=== PATIENT | female | born 1990 | race Caucasian/White ===

== ENCOUNTER 2022-05-26 23:22 | Inpatient (IN) ==
[2022-05-26] MEDS ORDERED: LIDOCAINE 1% LOCAL 20 ML VIAL INFIL PRN (23:37)
[2022-05-26] MEDS ORDERED: OXYTOCIN 30 UNITS/500 ML BAG IV PRN (23:37)
[2022-05-26] MEDS ORDERED: PENICILLIN G POTASSIUM 6 MU in DEXTROSE 5% 250 ML IV STA (23:37)
[2022-05-27] MEDS: LACTATED RINGER'S 1,000 ML IV PRN ×5 (00:19→17:37)
[2022-05-27] MEDS ORDERED: ePHEDrine sulfate 50 MG/ML AMP ONE (00:21)
[2022-05-27] MEDS ORDERED: SODIUM CHLORIDE 0.9% INJ 10 ML VIAL ONE (00:21)
[2022-05-27] MEDS ORDERED: fentaNYL citrate 100 MCG/2 ML VIAL ONE (00:21)
[2022-05-27] MEDS ORDERED: BUPIVACAINE 0.25% 30 ML VIAL ONE (00:21)
[2022-05-27] MEDS ORDERED: LIDOCAINE 2%/EPINEPHRINE 1:200,000 20 ML SDV ONE (00:21)
[2022-05-27] MEDS ORDERED: fentaNYL 2MCG/ML ROPIVACAINE 1.25MG/ML 100 ML BAG EPI ONE (00:21)
[2022-05-27 00:44] LABS: Hematocrit (blood only) 33.4 % (37.0-47.0); Hemoglobin 11.9 g/dl (12.0-16.0); Mean Corpuscular Hemoglobin 30.5 pg (25.0-34.0); Mean Corpuscular Hgb Conc 35.6 g/dL (32.0-36.0); Mean Corpuscular Volume 85.6 fL (80.0-100.0); Mean Platelet Volume 11.7 fL (9.4-12.4); Platelet Count 166 K/uL (130-400); RDW Coefficient of Variation 12.8 % (11.5-14.5); RDW Standard Deviation 38.7 fL (36.4-46.3); White Blood Count 9.12 K/ul (4.8-10.8)
[2022-05-27] MEDS ORDERED: ePHEDrine sulfate 50 MG/ML AMP IV PRN (01:09)
[2022-05-27] MEDS ORDERED: NALOXONE HCL 0.4 MG/1 ML VIAL/CARP IV PRN (01:09)
[2022-05-27] MEDS ORDERED: NALOXONE HCL 1 MG in SODIUM CHLORIDE 0.9% 1000ML 1,000 ML IV PRN (01:09)
[2022-05-27] MEDS ORDERED: diphenhydrAMINE 50 MG/ML VIAL IV PRN (01:09)
[2022-05-27] MEDS ORDERED: ONDANSETRON INJ 2 MG/ML 2 ML VIAL IV PRN (01:09)
[2022-05-27] MEDS ORDERED: NALBUPHINE HCL INJ 10 MG/ML AMP IV PRN (01:09)
--- NOTE | 2022-05-27 01:09 | Anesthesiology Consultation ---
Date of Service May 27, 2022 Assessment & Plan ASA ASA2 Proposed Anesthesia Anesthesia Type: Labor Epidural Risk / Benefits Reviewed With: PT / POA / Parent / Guardian, Accepts Plan and Informed Consent Obtained History Height/Weight Height: 5 ft 4 in Weight: 98.883 kg Allergies Allergy/AdvReac Type Severity Reaction Status Date / Time No Known Allergies Allergy Verified 05/26/22 23:52 Medications Home Medications Medication Instructions Recorded Confirmed Last Taken prenat.vits,srinivasa,yrp-prnj-hqwwc 1 tab PO DAILY 10/04/21 05/26/22 05/25/22 21:00 breast pump #1 ea 04/07/22 05/25/22 Unknown sertraline 50 mg tablet (Zoloft) 50 mg PO DAILY 05/26/22 05/26/22 05/25/22 21:00 Active Medications Generic Name Dose Route Start Last Admin Trade Name Freq PRN Reason Stop Dose Admin Lactated Ringer's 1,000 mls @ 125 mls/hr 05/26/22 23:37 05/27/22 00:19 Lr IV 05/28/22 23:36 999 mls/hr .Q8H PRN Administration L&D Protocol Protocol Past Medical History Medical History Anxiety Exercise / Class Metabolic Activity II 4-5 Yardwork/Stairs/Walk up hill Past Surgical History Surgical History History of ankle surgery S/P appendectomy Past Anesthesia History No Hx of Anesthesia Complications and No Family Hx of Anesthesia Complications History of PONV No Hx of PONV and No Hx of Motion Sickness Social History Smoking Status: Former smoker tobacco type: e-cigarettes Smoking End Date: quit 1 year ago Hx Alcohol Use: No Hx Substance Use: No substance use type: does not use Review of Systems denies fever/cough/ colds/ chest pain/ SOB/ GABBI denies GABBI Physical Exam Vital Signs Last Vital Signs Temp 36.5 C 05/26/22 23:55 Pulse 83 05/27/22 01:36 Resp 20 05/26/22 23:55 BP 114/63 05/27/22 01:36 Pulse Ox 100 05/27/22 01:34 ENMT Mouth: no TMJ abnormality and no dentition abnormality Thyromental Distance: > or= 3.5 Finger Breadths Mallampati Class: II Neck neck extension not limited Respiratory normal respiratory effort; no respiratory distress Auscultation: lungs clear to auscultation bilaterally Cardiovascular Rate/Rhythm: regular rate and regular rhythm Neurologic moves all extremities Psychiatric Orientation: alert and oriented x 3 Testing Laboratory Results 05/27/22 00:07
[2022-05-27] MEDS: PENICILLIN G POTASSIUM 3 MU in DEXTROSE 5% 100 ML IV PRN ×4 (04:28→16:31)
[2022-05-27] MEDS ORDERED: ceFAZolin 2000MG 2,000 MG/15 ML SYR IV SCH (06:00)
[2022-05-27] MEDS ORDERED: CITRIC ACID/SODIUM CITRATE 15 ML UDC PO SCH (06:00)
--- NOTE | 2022-05-27 07:20 | History & Physical Report ---
Date of Service May 27, 2022 Assessment & Plan (1) Active labor at term: (2) Group beta Strep positive: (3) Need for rhogam due to Rh negative mother: (4) Need for MMR vaccine: Plan pt has been admitted. labs reviewed. will need rhogam eval and mmr pp. on pcn for gbs pos. good progress in labor. regular ctx pattern. consider pit aug if needed. tylenol for de la rosa. fhts categ 1. Admission and Anticipated Discharge Date Admission Date: May 26, 2022 History of Present Illness Chief Complaint: contractions Primary Care Provider: Batsheva Holder MD 31yo at 40+wks janel presented to L&D with regular contractions. She called noting they were q1-2min. On arrival had srom, clear fluid. Cx was 4cm and she desired and received epidural. Last cx exam per nurse 6-7cm at 3- 4am. Pt comfortable. Has de la rosa which she attributes to not having caffeine. Denies other complaints. Maybe feeling pressure? PNC c/b 1. rh neg, had rhogam, eval pp 2. GBS pos urine, on pcn 3. Needs mmr booster pp PNL rh neg, rubella non immune, gbs pos Allergies Allergy/AdvReac Type Severity Reaction Status Date / Time No Known Allergies Allergy Verified 05/26/22 23:52 Home Medications Medication Instructions Recorded Confirmed Type prenat.vits,srinivasa,oki-mglu-irdvj 1 tab PO DAILY 10/04/21 05/26/22 History breast pump #1 ea 04/07/22 05/25/22 Rx sertraline 50 mg tablet (Zoloft) 50 mg PO DAILY 05/26/22 05/26/22 History Patient History Medical History (Updated 05/27/22 @ 07:19 by Juanita Botello MD, FACOG) Anxiety Surgical History History of ankle surgery S/P appendectomy Social History (Updated 10/04/21 @ 07:43 by Aye Bowser) Smoking Status: Former smoker Smoking End Date: quit 1 year ago; Second Hand Exposure: No; Hx Alcohol Use: No Hx Substance Use: No Preferred Language: Kiswahili Communication Ability: Effective Hand Bootmaker Required: No Beliefs That Will Affect Care: None marital status: marital status details: William (30) [phone] Current Living Situation: Spouse Current Living Situation Comment: lives with spouse, 2 dogs. current occupational status: employed current occupation: plant accountant Other Information That Helps Us Care for You: No Feels Safe at Home: Yes Safety Concerns: Feels Safe At This Time Assistive Devices: None Review of Systems as per Subjective / HPI Physical Exam Constitutional: WD/WN, vitals as above Respiratory: normal respiratory effort, lungs clear to auscultation Cardiovascular: Rate/Rhythm: regular rate and regular rhythm Gastrointestinal (Abdomen): soft gravid nt EFW 8-9# Musculoskeletal: no edema Neurologic: grossly normal Psychiatric: A+Ox3, euthymic affect Genitourinary: Manual OB Exam: + cervical dilation 8 cm, + cervical effacement 100% and + station 0 OB Exam Monitor Tracing: + external FHT monitor used, + external uterine monitor used (q2-3), + category I and + normal FHT variability Results & Data ([facility]) Vital Signs (Past 12 Hours) Vital Signs Temp Pulse Resp BP Pulse Ox 05/26/22 23:55 97.7 F 50 L 20 127/71 05/27/22 07:11 83 98 05/27/22 07:06 76 98 05/27/22 07:04 82 116/69 05/27/22 07:00 18 05/27/22 07:00 18 05/27/22 07:01 80 97 05/27/22 06:30 16 05/27/22 06:30 16 05/27/22 06:56 86 98 05/27/22 06:51 77 97 05/27/22 06:49 85 115/70 05/27/22 06:46 77 97 05/27/22 06:41 75 96 05/27/22 06:36 98 05/27/22 06:36 76 05/27/22 06:36 72 115/63 05/27/22 06:31 74 97 05/27/22 06:26 79 98 05/27/22 06:21 73 96 05/27/22 06:20 75 98/57 L 05/27/22 06:16 73 96 05/27/22 06:11 76 96 05/27/22 06:06 97 05/27/22 06:06 73 05/27/22 06:06 71 99/53 L 05/27/22 06:00 16 05/27/22 06:00 16 05/27/22 06:01 76 96 05/27/22 05:56 71 97 05/27/22 01:34 18 05/27/22 01:34 18 05/27/22 05:51 72 97 05/27/22 05:50 69 108/58 L 05/27/22 05:46 73 97 05/27/22 05:40 98.4 F 05/27/22 05:41 94 H 98 05/27/22 05:30 18 05/27/22 05:30 18 05/27/22 05:36 80 98 05/27/22 05:34 78 116/71 05/27/22 05:31 79 99 05/27/22 05:26 78 97 05/27/22 05:00 16 05/27/22 05:00 16 05/27/22 05:21 76 98 05/27/22 05:20 70 114/70 05/27/22 05:16 81 99 05/27/22 05:11 81 99 05/27/22 05:06 76 99 05/27/22 05:04 77 117/70 05/27/22 05:01 78 97 05/27/22 04:56 72 97 05/27/22 04:51 69 100 05/27/22 04:50 75 117/67 05/27/22 04:46 81 100 05/27/22 04:41 74 99 05/27/22 04:36 72 100 05/27/22 04:34 72 118/68 05/27/22 04:30 18 05/27/22 04:30 18 05/27/22 04:31 73 98 05/27/22 04:26 78 100 05/27/22 04:21 72 99 05/27/22 04:19 84 112/66 05/27/22 04:16 70 100 05/27/22 04:11 66 100 05/27/22 04:00 16 05/27/22 04:00 16 05/27/22 04:06 72 100 05/27/22 04:05 74 112/66 05/27/22 04:01 72 99 05/27/22 03:56 68 100 05/27/22 03:51 73 100 05/27/22 03:50 72 115/71 05/27/22 03:46 73 100 05/27/22 03:30 18 05/27/22 03:30 18 05/27/22 03:43 71 86 L 05/27/22 03:37 98.1 F 05/27/22 03:41 73 100 05/27/22 03:36 77 100 05/27/22 03:31 79 100 05/27/22 03:29 75 118/63 05/27/22 03:26 85 100 05/27/22 03:24 67 114/62 05/27/22 03:21 68 100 05/27/22 03:19 69 116/63 05/27/22 03:16 69 100 05/27/22 03:14 68 115/60 05/27/22 03:11 77 100 05/27/22 03:09 77 114/64 05/27/22 03:06 86 100 05/27/22 03:04 83 112/60 05/27/22 03:01 90 99 05/27/22 03:00 68 110/66 05/27/22 02:56 73 100 05/27/22 02:55 68 112/62 05/27/22 02:51 82 100 05/27/22 02:49 80 111/62 05/27/22 02:46 81 100 05/27/22 02:44 80 119/56 L 05/27/22 02:41 75 100 05/27/22 02:40 86 114/65 05/27/22 02:36 84 100 05/27/22 02:35 86 109/66 05/27/22 02:31 76 100 05/27/22 02:30 16 05/27/22 02:30 16 05/27/22 02:29 83 109/61 05/27/22 02:26 86 100 05/27/22 02:24 74 18 108/61 05/27/22 02:01 18 05/27/22 02:01 18 05/27/22 02:21 77 100 05/27/22 02:20 77 16 112/60 05/27/22 02:16 95 H 100 05/27/22 02:14 97 H 18 100/59 L 05/27/22 02:11 82 100 05/27/22 02:09 99 H 16 96/55 L 05/27/22 02:06 100 05/27/22 02:06 87 05/27/22 02:06 88 87/54 L 05/27/22 02:01 100 05/27/22 02:01 112 H 05/27/22 02:01 110 H 109/58 L 05/27/22 01:56 99 05/27/22 01:56 71 05/27/22 01:56 65 87/53 L 05/27/22 01:50 97.9 F 72 100 05/27/22 01:45 78 18 98/58 L 100 05/27/22 01:39 88 100 05/27/22 01:38 86 20 109/62 05/27/22 01:36 83 18 114/63 05/27/22 01:34 100 05/27/22 01:34 77 05/27/22 01:34 85 115/60 05/27/22 01:31 68 18 118/59 L 05/27/22 01:29 70 99 05/27/22 01:30 71 93 05/27/22 01:24 59 L 100 05/27/22 01:19 50 L 100 05/27/22 01:14 70 99 05/26/22 23:31 97.7 F 50 L 20 127/71 Coding Level of Care Code None Diagnoses Active labor at term Group beta Strep positive B95.1 Need for rhogam due to Rh negative mother Z29.13 Need for MMR vaccine Z23
[2022-05-27] MEDS ORDERED: ACETAMINOPHEN 325 MG TAB PO STA (07:21)
[2022-05-27] MEDS: fentaNYL 2MCG/ML ROPIVACAINE 1.25MG/ML 100 ML BAG EPI PRN ×2 (09:06→15:42)
[2022-05-27] MEDS ORDERED: OXYTOCIN 30 UNITS/500 ML BAG IV PRN (11:21)
--- NOTE | 2022-05-27 11:28 | Labor Progress Brief Note ---
Date of Service May 27, 2022 Subjective Comfortable with epidural. FHT Cat 1 toco irreg Q2-4 SVE 9/100/0 Agreeable to start pitocin. Assessment & Plan Admission and Anticipated Discharge Date Admission Date: May 26, 2022 Results & Data ([facility]) Vital Signs (Past 12 Hours) Vital Signs Temp Pulse Resp BP Pulse Ox 05/26/22 23:55 36.5 C 50 L 20 127/71 05/27/22 11:21 98 05/27/22 11:21 74 05/27/22 11:21 70 116/55 L 05/27/22 11:16 79 97 05/27/22 11:11 62 98 05/27/22 11:06 60 98 05/27/22 11:05 60 116/66 05/27/22 11:00 18 05/27/22 11:00 36.9 C 18 05/27/22 11:01 67 98 05/27/22 10:56 64 98 05/27/22 10:51 63 98 05/27/22 10:49 68 118/61 05/27/22 10:46 62 97 05/27/22 10:41 71 96 05/27/22 10:36 74 96 05/27/22 10:34 73 113/63 05/27/22 10:31 68 97 05/27/22 10:26 72 96 05/27/22 10:21 64 96 05/27/22 10:19 60 102/61 05/27/22 10:16 66 100 05/27/22 10:00 18 05/27/22 10:00 18 05/27/22 10:11 58 L 97 05/27/22 10:06 60 96 05/27/22 10:04 63 97/52 L 05/27/22 10:01 60 97 05/27/22 09:56 58 L 97 05/27/22 09:51 61 98 05/27/22 09:49 56 L 96/55 L 05/27/22 09:46 63 98 05/27/22 09:41 58 L 98 05/27/22 09:36 59 L 98 05/27/22 09:30 16 05/27/22 09:30 16 05/27/22 09:34 62 93/53 L 05/27/22 09:31 69 97 02/18/23 09:26 64 97 05/27/22 09:21 66 97 05/27/22 09:19 59 L 121/67 05/27/22 09:16 64 98 05/27/22 09:11 66 97 05/27/22 09:06 70 98 05/27/22 09:04 64 124/70 05/27/22 09:01 65 98 05/27/22 08:59 18 05/27/22 08:59 36.8 C 18 05/27/22 08:30 18 05/27/22 08:30 18 05/27/22 08:56 66 99 05/27/22 08:51 72 100 05/27/22 08:49 68 117/69 05/27/22 08:46 73 100 05/27/22 08:41 70 98 05/27/22 08:36 75 98 05/27/22 08:34 65 122/70 05/27/22 08:31 76 99 05/27/22 08:00 16 05/27/22 08:00 16 05/27/22 08:26 69 99 05/27/22 07:30 18 05/27/22 07:30 18 05/27/22 08:21 73 100 05/27/22 08:20 71 118/75 05/27/22 08:16 72 99 05/27/22 08:11 71 98 05/27/22 08:06 72 97 05/27/22 08:05 66 118/64 05/27/22 08:01 68 98 05/27/22 07:56 67 98 05/27/22 07:51 75 98 05/27/22 07:49 69 124/60 05/27/22 07:46 76 98 05/27/22 07:41 75 97 05/27/22 07:36 74 97 05/27/22 07:35 78 118/63 05/27/22 07:31 84 96 05/27/22 07:26 76 97 05/27/22 07:21 84 98 05/27/22 07:20 76 110/68 05/27/22 07:16 81 97 05/27/22 07:11 37.1 C 83 18 98 05/27/22 07:06 76 98 05/27/22 07:04 82 116/69 05/27/22 07:00 18 05/27/22 07:00 18 05/27/22 07:01 80 97 05/27/22 06:30 16 05/27/22 06:30 16 05/27/22 06:56 86 98 05/27/22 06:51 77 97 05/27/22 06:49 85 115/70 05/27/22 06:46 77 97 05/27/22 06:41 75 96 05/27/22 06:36 98 05/27/22 06:36 76 05/27/22 06:36 72 115/63 05/27/22 06:31 74 97 05/27/22 06:26 79 98 05/27/22 06:21 73 96 05/27/22 06:20 75 98/57 L 05/27/22 06:16 73 96 05/27/22 06:11 76 96 05/27/22 06:06 97 05/27/22 06:06 73 05/27/22 06:06 71 99/53 L 05/27/22 06:00 16 05/27/22 06:00 16 05/27/22 06:01 76 96 05/27/22 05:56 71 97 05/27/22 01:34 18 05/27/22 01:34 18 05/27/22 05:51 72 97 05/27/22 05:50 69 108/58 L 05/27/22 05:46 73 97 05/27/22 05:40 36.9 C 05/27/22 05:41 94 H 98 05/27/22 05:30 18 05/27/22 05:30 18 05/27/22 05:36 80 98 05/27/22 05:34 78 116/71 05/27/22 05:31 79 99 05/27/22 05:26 78 97 05/27/22 05:00 16 05/27/22 05:00 16 05/27/22 05:21 76 98 05/27/22 05:20 70 114/70 05/27/22 05:16 81 99 05/27/22 05:11 81 99 05/27/22 05:06 76 99 05/27/22 05:04 77 117/70 05/27/22 05:01 78 97 05/27/22 04:56 72 97 05/27/22 04:51 69 100 05/27/22 04:50 75 117/67 05/27/22 04:46 81 100 05/27/22 04:41 74 99 05/27/22 04:36 72 100 05/27/22 04:34 72 118/68 05/27/22 04:30 18 05/27/22 04:30 18 05/27/22 04:31 73 98 05/27/22 04:26 78 100 05/27/22 04:21 72 99 05/27/22 04:19 84 112/66 05/27/22 04:16 70 100 05/27/22 04:11 66 100 05/27/22 04:00 16 05/27/22 04:00 16 05/27/22 04:06 72 100 05/27/22 04:05 74 112/66 05/27/22 04:01 72 99 05/27/22 03:56 68 100 05/27/22 03:51 73 100 05/27/22 03:50 72 115/71 05/27/22 03:46 73 100 05/27/22 03:30 18 05/27/22 03:30 18 05/27/22 03:43 71 86 L 05/27/22 03:37 36.7 C 05/27/22 03:41 73 100 05/27/22 03:36 77 100 05/27/22 03:31 79 100 05/27/22 03:29 75 118/63 05/27/22 03:26 85 100 05/27/22 03:24 67 114/62 05/27/22 03:21 68 100 05/27/22 03:19 69 116/63 05/27/22 03:16 69 100 05/27/22 03:14 68 115/60 05/27/22 03:11 77 100 05/27/22 03:09 77 114/64 05/27/22 03:06 86 100 05/27/22 03:04 83 112/60 05/27/22 03:01 90 99 05/27/22 03:00 68 110/66 05/27/22 02:56 73 100 05/27/22 02:55 68 112/62 05/27/22 02:51 82 100 05/27/22 02:49 80 111/62 05/27/22 02:46 81 100 05/27/22 02:44 80 119/56 L 05/27/22 02:41 75 100 05/27/22 02:40 86 114/65 05/27/22 02:36 84 100 05/27/22 02:35 86 109/66 05/27/22 02:31 76 100 05/27/22 02:30 16 05/27/22 02:30 16 05/27/22 02:29 83 109/61 05/27/22 02:26 86 100 05/27/22 02:24 74 18 108/61 05/27/22 02:01 18 05/27/22 02:01 18 05/27/22 02:21 77 100 05/27/22 02:20 77 16 112/60 05/27/22 02:16 95 H 100 05/27/22 02:14 97 H 18 100/59 L 05/27/22 02:11 82 100 05/27/22 02:09 99 H 16 96/55 L 05/27/22 02:06 100 05/27/22 02:06 87 05/27/22 02:06 88 87/54 L 05/27/22 02:01 100 05/27/22 02:01 112 H 05/27/22 02:01 110 H 109/58 L 05/27/22 01:56 99 05/27/22 01:56 71 05/27/22 01:56 65 87/53 L 05/27/22 01:50 36.6 C 72 100 05/27/22 01:45 78 18 98/58 L 100 05/27/22 01:39 88 100 05/27/22 01:38 86 20 109/62 05/27/22 01:36 83 18 114/63 05/27/22 01:34 100 05/27/22 01:34 77 05/27/22 01:34 85 115/60 05/27/22 01:31 68 18 118/59 L 05/27/22 01:29 70 99 05/27/22 01:30 71 93 05/27/22 01:24 59 L 100 05/27/22 01:19 50 L 100 05/27/22 01:14 70 99 05/26/22 23:31 36.5 C 50 L 20 127/71 Coding Level of Care Code None Diagnoses
--- NOTE | 2022-05-27 13:54 | Labor Progress Brief Note ---
Date of Service May 27, 2022 Subjective Comfortable with epidural. Contraction pattern has now increased to Q2 min with the addition of pitocin. FHT Cat 1 SVE 9/100/+1 station has improved, discussed with patient - will continue labor. Assessment & Plan Admission and Anticipated Discharge Date Admission Date: May 26, 2022 Results & Data ([facility]) Vital Signs (Past 12 Hours) Vital Signs Temp Pulse Resp BP Pulse Ox 05/27/22 13:51 83 98 05/27/22 13:50 63 102/59 L 05/27/22 13:46 62 98 05/27/22 13:41 73 97 05/27/22 13:36 58 L 98 05/27/22 13:35 53 L 114/58 L 05/27/22 13:30 18 05/27/22 13:30 18 05/27/22 13:31 56 L 98 05/27/22 13:26 65 99 05/27/22 13:21 60 99 05/27/22 13:19 56 L 108/61 05/27/22 13:16 58 L 96 05/27/22 13:11 64 97 05/27/22 13:06 62 97 05/27/22 13:05 62 110/64 05/27/22 13:00 18 05/27/22 13:00 36.6 C 18 05/27/22 13:01 71 96 05/27/22 12:56 60 97 05/27/22 12:30 18 05/27/22 12:30 18 05/27/22 12:51 60 95 05/27/22 12:50 60 122/61 05/27/22 12:46 66 97 05/27/22 12:41 66 97 05/27/22 12:36 59 L 97 05/27/22 12:34 85 101/55 L 05/27/22 12:31 75 96 05/27/22 12:00 16 05/27/22 12:00 16 05/27/22 12:26 57 L 97 05/27/22 11:30 18 05/27/22 11:30 18 05/27/22 12:21 59 L 98 05/27/22 12:19 60 106/58 L 05/27/22 12:16 72 96 05/27/22 12:11 69 98 05/27/22 12:06 60 96 05/27/22 12:05 58 L 121/65 05/27/22 12:01 62 96 05/27/22 11:56 59 L 98 05/27/22 11:51 69 97 05/27/22 11:50 58 L 111/66 05/27/22 11:46 66 98 05/27/22 11:41 64 98 05/27/22 11:36 59 L 98 05/27/22 11:34 68 109/61 05/27/22 11:31 59 L 97 05/27/22 11:26 67 97 05/27/22 11:21 98 05/27/22 11:21 74 05/27/22 11:21 70 116/55 L 05/27/22 11:16 79 97 05/27/22 11:11 62 98 05/27/22 11:06 60 98 05/27/22 11:05 60 116/66 05/27/22 11:00 18 05/27/22 11:00 36.9 C 18 05/27/22 11:01 67 98 05/27/22 10:56 64 98 05/27/22 10:51 63 98 05/27/22 10:49 68 118/61 05/27/22 10:46 62 97 05/27/22 10:41 71 96 05/27/22 10:36 74 96 05/27/22 10:34 73 113/63 05/27/22 10:31 68 97 05/27/22 10:26 72 96 05/27/22 10:21 64 96 05/27/22 10:19 60 102/61 05/27/22 10:16 66 100 05/27/22 10:00 18 05/27/22 10:00 18 05/27/22 10:11 58 L 97 05/27/22 10:06 60 96 05/27/22 10:04 63 97/52 L 05/27/22 10:01 60 97 05/27/22 09:56 58 L 97 05/27/22 09:51 61 98 05/27/22 09:49 56 L 96/55 L 05/27/22 09:46 63 98 05/27/22 09:41 58 L 98 05/27/22 09:36 59 L 98 05/27/22 09:30 16 05/27/22 09:30 16 05/27/22 09:34 62 93/53 L 05/27/22 09:31 69 97 05/27/22 09:26 64 97 05/27/22 09:21 66 97 05/27/22 09:19 59 L 121/67 05/27/22 09:16 64 98 05/27/22 09:11 66 97 05/27/22 09:06 70 98 05/27/22 09:04 64 124/70 05/27/22 09:01 65 98 05/27/22 08:59 18 05/27/22 08:59 36.8 C 18 05/27/22 08:30 18 05/27/22 08:30 18 05/27/22 08:56 66 99 05/27/22 08:51 72 100 05/27/22 08:49 68 117/69 05/27/22 08:46 73 100 05/27/22 08:41 70 98 05/27/22 08:36 75 98 05/27/22 08:34 65 122/70 05/27/22 08:31 76 99 05/27/22 08:00 16 05/27/22 08:00 16 05/27/22 08:26 69 99 05/27/22 07:30 18 05/27/22 07:30 18 05/27/22 08:21 73 100 05/27/22 08:20 71 118/75 05/27/22 08:16 72 99 05/27/22 08:11 71 98 05/27/22 08:06 72 97 05/27/22 08:05 66 118/64 05/27/22 08:01 68 98 05/27/22 07:56 67 98 05/27/22 07:51 75 98 05/27/22 07:49 69 124/60 05/27/22 07:46 76 98 05/27/22 07:41 75 97 05/27/22 07:36 74 97 02 07:35 78 118/63 05/27/22 07:31 84 96 05/27/22 07:26 76 97 05/27/22 07:21 84 98 05/27/22 07:20 76 110/68 05/27/22 07:16 81 97 05/27/22 07:11 37.1 C 83 18 98 05/27/22 07:06 76 98 05/27/22 07:04 82 116/69 05/27/22 07:00 18 05/27/22 07:00 18 05/27/22 07:01 80 97 05/27/22 06:30 16 05/27/22 06:30 16 05/27/22 06:56 86 98 05/27/22 06:51 77 97 05/27/22 06:49 85 115/70 05/27/22 06:46 77 97 05/27/22 06:41 75 96 05/27/22 06:36 98 05/27/22 06:36 76 05/27/22 06:36 72 115/63 05/27/22 06:31 74 97 05/27/22 06:26 79 98 05/27/22 06:21 73 96 05/27/22 06:20 75 98/57 L 05/27/22 06:16 73 96 05/27/22 06:11 76 96 05/27/22 06:06 97 05/27/22 06:06 73 05/27/22 06:06 71 99/53 L 05/27/22 06:00 16 05/27/22 06:00 16 05/27/22 06:01 76 96 05/27/22 05:56 71 97 05/27/22 05:51 72 97 05/27/22 05:50 69 108/58 L 05/27/22 05:46 73 97 05/27/22 05:40 36.9 C 05/27/22 05:41 94 H 98 05/27/22 05:30 18 05/27/22 05:30 18 05/27/22 05:36 80 98 05/27/22 05:34 78 116/71 05/27/22 05:31 79 99 05/27/22 05:26 78 97 05/27/22 05:00 16 05/27/22 05:00 16 05/27/22 05:21 76 98 05/27/22 05:20 70 114/70 05/27/22 05:16 81 99 05/27/22 05:11 81 99 05/27/22 05:06 76 99 05/27/22 05:04 77 117/70 05/27/22 05:01 78 97 05/27/22 04:56 72 97 05/27/22 04:51 69 100 05/27/22 04:50 75 117/67 05/27/22 04:46 81 100 05/27/22 04:41 74 99 05/27/22 04:36 72 100 05/27/22 04:34 72 118/68 05/27/22 04:30 18 05/27/22 04:30 18 05/27/22 04:31 73 98 05/27/22 04:26 78 100 05/27/22 04:21 72 99 05/27/22 04:19 84 112/66 05/27/22 04:16 70 100 05/27/22 04:11 66 100 05/27/22 04:00 16 05/27/22 04:00 16 05/27/22 04:06 72 100 05/27/22 04:05 74 112/66 05/27/22 04:01 72 99 05/27/22 03:56 68 100 05/27/22 03:51 73 100 05/27/22 03:50 72 115/71 05/27/22 03:46 73 100 05/27/22 03:30 18 05/27/22 03:30 18 05/27/22 03:43 71 86 L 05/27/22 03:37 36.7 C 05/27/22 03:41 73 100 05/27/22 03:36 77 100 05/27/22 03:31 79 100 05/27/22 03:29 75 118/63 05/27/22 03:26 85 100 05/27/22 03:24 67 114/62 05/27/22 03:21 68 100 05/27/22 03:19 69 116/63 05/27/22 03:16 69 100 05/27/22 03:14 68 115/60 05/27/22 03:11 77 100 05/27/22 03:09 77 114/64 05/27/22 03:06 86 100 05/27/22 03:04 83 112/60 05/27/22 03:01 90 99 05/27/22 03:00 68 110/66 05/27/22 02:56 73 100 05/27/22 02:55 68 112/62 05/27/22 02:51 82 100 05/27/22 02:49 80 111/62 05/27/22 02:46 81 100 05/27/22 02:44 80 119/56 L 05/27/22 02:41 75 100 05/27/22 02:40 86 114/65 05/27/22 02:36 84 100 05/27/22 02:35 86 109/66 05/27/22 02:31 76 100 05/27/22 02:30 16 05/27/22 02:30 16 05/27/22 02:29 83 109/61 05/27/22 02:26 86 100 05/27/22 02:24 74 18 108/61 05/27/22 02:01 18 05/27/22 02:01 18 05/27/22 02:21 77 100 05/27/22 02:20 77 16 112/60 05/27/22 02:16 95 H 100 05/27/22 02:14 97 H 18 100/59 L 05/27/22 02:11 82 100 05/27/22 02:09 99 H 16 96/55 L 05/27/22 02:06 100 05/27/22 02:06 87 05/27/22 02:06 88 87/54 L 05/27/22 02:01 100 05/27/22 02:01 112 H 05/27/22 02:01 110 H 109/58 L 05/27/22 01:56 99 05/27/22 01:56 71 05/27/22 01:56 65 87/53 L Coding Level of Care Code None Diagnoses
--- NOTE | 2022-05-27 15:29 | Labor Progress Brief Note ---
Date of Service May 27, 2022 Subjective Not feeling pressure with ctx. FHT Cat 1 [place] Q 2-4 Pit @ 11 SVE 9.5/100/+1 Discussed with patient. Progress has been slow. Plan for continue labor at this time. Assessment & Plan Admission and Anticipated Discharge Date Admission Date: May 26, 2022 Results & Data ([facility]) Vital Signs (Past 12 Hours) Vital Signs Temp Pulse Resp BP Pulse Ox 05/27/22 15:21 72 93 05/27/22 15:20 60 110/65 05/27/22 15:16 55 L 96 05/27/22 15:11 51 L 97 05/27/22 15:00 18 05/27/22 15:00 36.8 C 18 05/27/22 15:06 52 L 98 05/27/22 15:05 52 L 92/54 L 05/27/22 15:01 68 97 05/27/22 14:56 60 96 05/27/22 14:51 56 L 97 05/27/22 14:50 52 L 117/74 05/27/22 14:46 64 97 05/27/22 14:41 56 L 96 05/27/22 14:30 16 05/27/22 14:30 16 05/27/22 14:36 56 L 95 05/27/22 14:34 54 L 134/75 05/27/22 14:31 56 L 96 05/27/22 14:26 56 L 97 05/27/22 14:21 56 L 96 05/27/22 14:19 55 L 131/71 05/27/22 14:16 55 L 96 05/27/22 14:00 18 05/27/22 14:00 18 05/27/22 14:11 71 118/74 94 05/27/22 14:06 67 85/46 L 97 05/27/22 14:05 60 85/48 L 05/27/22 14:01 60 98 05/27/22 13:56 57 L 97 05/27/22 13:51 83 98 05/27/22 13:50 63 102/59 L 05/27/22 13:46 62 98 05/27/22 13:41 73 97 05/27/22 13:36 58 L 98 05/27/22 13:35 53 L 114/58 L 05/27/22 13:30 18 05/27/22 13:30 18 05/27/22 13:31 56 L 98 05/27/22 13:26 65 99 05/27/22 13:21 60 99 05/27/22 13:19 56 L 108/61 05/27/22 13:16 58 L 96 05/27/22 13:11 64 97 05/27/22 13:06 62 97 05/27/22 13:05 62 110/64 05/27/22 13:00 18 05/27/22 13:00 36.6 C 18 05/27/22 13:01 71 96 05/27/22 12:56 60 97 05/27/22 12:30 18 05/27/22 12:30 18 05/27/22 12:51 60 95 05/27/22 12:50 60 122/61 05/27/22 12:46 66 97 05/27/22 12:41 66 97 05/27/22 12:36 59 L 97 05/27/22 12:34 85 101/55 L 05/27/22 12:31 75 96 05/27/22 12:00 16 05/27/22 12:00 16 05/27/22 12:26 57 L 97 05/27/22 11:30 18 05/27/22 11:30 18 05/27/22 12:21 59 L 98 05/27/22 12:19 60 106/58 L 05/27/22 12:16 72 96 05/27/22 12:11 69 98 05/27/22 12:06 60 96 05/27/22 12:05 58 L 121/65 05/27/22 12:01 62 96 05/27/22 11:56 59 L 98 05/27/22 11:51 69 97 05/27/22 11:50 58 L 111/66 05/27/22 11:46 66 98 05/27/22 11:41 64 98 05/27/22 11:36 59 L 98 05/27/22 11:34 68 109/61 05/27/22 11:31 59 L 97 05/27/22 11:26 67 97 05/27/22 11:21 98 05/27/22 11:21 74 05/27/22 11:21 70 116/55 L 05/27/22 11:16 79 97 05/27/22 11:11 62 98 05/27/22 11:06 60 98 05/27/22 11:05 60 116/66 05/27/22 11:00 18 05/27/22 11:00 36.9 C 18 05/27/22 11:01 67 98 05/27/22 10:56 64 98 05/27/22 10:51 63 98 05/27/22 10:49 68 118/61 05/27/22 10:46 62 97 05/27/22 10:41 71 96 05/27/22 10:36 74 96 05/27/22 10:34 73 113/63 05/27/22 10:31 68 97 05/27/22 10:26 72 96 05/27/22 10:21 64 96 05/27/22 10:19 60 102/61 05/27/22 10:16 66 100 05/27/22 10:00 18 05/27/22 10:00 18 05/27/22 10:11 58 L 97 05/27/22 10:06 60 96 05/27/22 10:04 63 97/52 L 05/27/22 10:01 60 97 05/27/22 09:56 58 L 97 05/27/22 09:51 61 98 05/27/22 09:49 56 L 96/55 L 05/27/22 09:46 63 98 05/27/22 09:41 58 L 98 05/27/22 09:36 59 L 98 05/27/22 09:30 16 05/27/22 09:30 16 05/27/22 09:34 62 93/53 L 05/27/22 09:31 69 97 05/27/22 09:26 64 97 05/27/22 09:21 66 97 05/27/22 09:19 59 L 121/67 05/27/22 09:16 64 98 05/27/22 09:11 66 97 05/27/22 09:06 70 98 05/27/22 09:04 64 124/70 05/27/22 09:01 65 98 05/27/22 08:59 18 05/27/22 08:59 36.8 C 18 05/27/22 08:30 18 05/27/22 08:30 18 05/27/22 08:56 66 99 05/27/22 08:51 72 100 05/27/22 08:49 68 117/69 05/27/22 08:46 73 100 05/27/22 08:41 70 98 05/27/22 08:36 75 98 05/27/22 08:34 65 122/70 05/27/22 08:31 76 99 05/27/22 08:00 16 05/27/22 08:00 16 05/27/22 08:26 69 99 05/27/22 07:30 18 05/27/22 07:30 18 05/27/22 08:21 73 100 05/27/22 08:20 71 118/75 05/27/22 08:16 72 99 05/27/22 08:11 71 98 05/27/22 08:06 72 97 05/27/22 08:05 66 118/64 05/27/22 08:01 68 98 05/27/22 07:56 67 98 05/27/22 07:51 75 98 05/27/22 07:49 69 124/60 05/27/22 07:46 76 98 05/27/22 07:41 75 97 05/27/22 07:36 74 97 05/27/22 07:35 78 118/63 05/27/22 07:31 84 96 05/27/22 07:26 76 97 05/27/22 07:21 84 98 05/27/22 07:20 76 110/68 05/27/22 07:16 81 97 05/27/22 07:11 37.1 C 83 18 98 05/27/22 07:06 76 98 05/27/22 07:04 82 116/69 05/27/22 07:00 18 05/27/22 07:00 18 05/27/22 07:01 80 97 05/27/22 06:30 16 05/27/22 06:30 16 05/27/22 06:56 86 98 05/27/22 06:51 77 97 05/27/22 06:49 85 115/70 05/27/22 06:46 77 97 05/27/22 06:41 75 96 05/27/22 06:36 98 05/27/22 06:36 76 05/27/22 06:36 72 115/63 05/27/22 06:31 74 97 05/27/22 06:26 79 98 05/27/22 06:21 73 96 05/27/22 06:20 75 98/57 L 05/27/22 06:16 73 96 05/27/22 06:11 76 96 05/27/22 06:06 97 05/27/22 06:06 73 05/27/22 06:06 71 99/53 L 05/27/22 06:00 16 05/27/22 06:00 16 05/27/22 06:01 76 96 05/27/22 05:56 71 97 05/27/22 05:51 72 97 05/27/22 05:50 69 108/58 L 05/27/22 05:46 73 97 05/27/22 05:40 36.9 C 05/27/22 05:41 94 H 98 05/27/22 05:30 18 05/27/22 05:30 18 05/27/22 05:36 80 98 05/27/22 05:34 78 116/71 05/27/22 05:31 79 99 05/27/22 05:26 78 97 05/27/22 05:00 16 05/27/22 05:00 16 05/27/22 05:21 76 98 05/27/22 05:20 70 114/70 05/27/22 05:16 81 99 05/27/22 05:11 81 99 05/27/22 05:06 76 99 05/27/22 05:04 77 117/70 05/27/22 05:01 78 97 05/27/22 04:56 72 97 05/27/22 04:51 69 100 05/27/22 04:50 75 117/67 05/27/22 04:46 81 100 05/27/22 04:41 74 99 05/27/22 04:36 72 100 05/27/22 04:34 72 118/68 05/27/22 04:30 18 05/27/22 04:30 18 05/27/22 04:31 73 98 05/27/22 04:26 78 100 05/27/22 04:21 72 99 05/27/22 04:19 84 112/66 05/27/22 04:16 70 100 05/27/22 04:11 66 100 05/27/22 04:00 16 05/27/22 04:00 16 05/27/22 04:06 72 100 05/27/22 04:05 74 112/66 05/27/22 04:01 72 99 05/27/22 03:56 68 100 05/27/22 03:51 73 100 05/27/22 03:50 72 115/71 05/27/22 03:46 73 100 05/27/22 03:30 18 05/27/22 03:30 18 05/27/22 03:43 71 86 L 05/27/22 03:37 36.7 C 05/27/22 03:41 73 100 05/27/22 03:36 77 100 05/27/22 03:31 79 100 05/27/22 03:29 75 118/63 Coding Level of Care Code None Diagnoses
--- NOTE | 2022-05-27 17:36 | Labor Progress Brief Note ---
Date of Service May 27, 2022 Subjective Comfortable. FHT 130s, mod cinthya, +accels, rare variable decels [place] Q2 SVE complete/100/+1 Will start pushing. Assessment & Plan Admission and Anticipated Discharge Date Admission Date: May 26, 2022 Results & Data ([facility]) Vital Signs (Past 12 Hours) Vital Signs Temp Pulse Resp BP Pulse Ox 05/27/22 17:31 77 100 05/27/22 17:26 58 L 100 05/27/22 17:21 62 99 05/27/22 17:16 51 L 100 05/27/22 17:11 54 L 100 05/27/22 17:00 18 05/27/22 17:00 36.7 C 18 05/27/22 17:06 52 L 100 05/27/22 17:01 51 L 99 05/27/22 16:56 52 L 100 05/27/22 16:30 16 05/27/22 16:30 16 05/27/22 16:51 52 L 99 05/27/22 16:50 51 L 123/72 05/27/22 16:46 57 L 100 05/27/22 16:41 53 L 100 05/27/22 16:36 100 05/27/22 16:36 58 L 05/27/22 16:36 52 L 123/73 05/27/22 16:31 55 L 99 05/27/22 16:26 65 98 05/27/22 16:21 54 L 96 05/27/22 16:19 51 L 102/55 L 05/27/22 16:16 55 L 96 05/27/22 16:11 59 L 100 05/27/22 16:00 18 05/27/22 16:00 18 05/27/22 16:06 56 L 99 05/27/22 16:05 55 L 109/58 L 05/27/22 16:01 54 L 98 05/27/22 15:56 52 L 98 05/27/22 15:51 64 98 05/27/22 15:50 56 L 106/50 L 05/27/22 15:46 63 99 05/27/22 15:41 59 L 99 05/27/22 15:36 51 L 98 05/27/22 15:34 50 L 105/60 05/27/22 15:31 54 L 99 05/27/22 15:30 20 02/18/23 15:30 20 05/27/22 15:26 68 98 05/27/22 15:21 72 93 05/27/22 15:20 60 110/65 05/27/22 15:16 55 L 96 05/27/22 15:11 51 L 97 05/27/22 15:00 18 05/27/22 15:00 36.8 C 18 05/27/22 15:06 52 L 98 05/27/22 15:05 52 L 92/54 L 05/27/22 15:01 68 97 05/27/22 14:56 60 96 05/27/22 14:51 56 L 97 05/27/22 14:50 52 L 117/74 05/27/22 14:46 64 97 05/27/22 14:41 56 L 96 05/27/22 14:30 16 05/27/22 14:30 16 05/27/22 14:36 56 L 95 05/27/22 14:34 54 L 134/75 05/27/22 14:31 56 L 96 05/27/22 14:26 56 L 97 05/27/22 14:21 56 L 96 05/27/22 14:19 55 L 131/71 05/27/22 14:16 55 L 96 05/27/22 14:00 18 05/27/22 14:00 18 05/27/22 14:11 71 118/74 94 05/27/22 14:06 67 85/46 L 97 05/27/22 14:05 60 85/48 L 05/27/22 14:01 60 98 05/27/22 13:56 57 L 97 05/27/22 13:51 83 98 05/27/22 13:50 63 102/59 L 05/27/22 13:46 62 98 05/27/22 13:41 73 97 05/27/22 13:36 58 L 98 05/27/22 13:35 53 L 114/58 L 05/27/22 13:30 18 05/27/22 13:30 18 05/27/22 13:31 56 L 98 05/27/22 13:26 65 99 05/27/22 13:21 60 99 05/27/22 13:19 56 L 108/61 05/27/22 13:16 58 L 96 05/27/22 13:11 64 97 05/27/22 13:06 62 97 05/27/22 13:05 62 110/64 05/27/22 13:00 18 05/27/22 13:00 36.6 C 18 05/27/22 13:01 71 96 05/27/22 12:56 60 97 05/27/22 12:30 18 05/27/22 12:30 18 05/27/22 12:51 60 95 05/27/22 12:50 60 122/61 05/27/22 12:46 66 97 05/27/22 12:41 66 97 05/27/22 12:36 59 L 97 05/27/22 12:34 85 101/55 L 05/27/22 12:31 75 96 05/27/22 12:00 16 05/27/22 12:00 16 05/27/22 12:26 57 L 97 05/27/22 11:30 18 05/27/22 11:30 18 05/27/22 12:21 59 L 98 05/27/22 12:19 60 106/58 L 05/27/22 12:16 72 96 05/27/22 12:11 69 98 05/27/22 12:06 60 96 05/27/22 12:05 58 L 121/65 05/27/22 12:01 62 96 05/27/22 11:56 59 L 98 05/27/22 11:51 69 97 05/27/22 11:50 58 L 111/66 05/27/22 11:46 66 98 05/27/22 11:41 64 98 05/27/22 11:36 59 L 98 05/27/22 11:34 68 109/61 05/27/22 11:31 59 L 97 05/27/22 11:26 67 97 05/27/22 11:21 98 05/27/22 11:21 74 02 11:21 70 116/55 L 05/27/22 11:16 79 97 05/27/22 11:11 62 98 05/27/22 11:06 60 98 05/27/22 11:05 60 116/66 05/27/22 11:00 18 05/27/22 11:00 36.9 C 18 05/27/22 11:01 67 98 05/27/22 10:56 64 98 05/27/22 10:51 63 98 05/27/22 10:49 68 118/61 05/27/22 10:46 62 97 05/27/22 10:41 71 96 05/27/22 10:36 74 96 05/27/22 10:34 73 113/63 05/27/22 10:31 68 97 05/27/22 10:26 72 96 05/27/22 10:21 64 96 05/27/22 10:19 60 102/61 05/27/22 10:16 66 100 05/27/22 10:00 18 05/27/22 10:00 18 05/27/22 10:11 58 L 97 05/27/22 10:06 60 96 05/27/22 10:04 63 97/52 L 05/27/22 10:01 60 97 05/27/22 09:56 58 L 97 05/27/22 09:51 61 98 05/27/22 09:49 56 L 96/55 L 05/27/22 09:46 63 98 05/27/22 09:41 58 L 98 05/27/22 09:36 59 L 98 05/27/22 09:30 16 05/27/22 09:30 16 05/27/22 09:34 62 93/53 L 05/27/22 09:31 69 97 05/27/22 09:26 64 97 05/27/22 09:21 66 97 05/27/22 09:19 59 L 121/67 05/27/22 09:16 64 98 05/27/22 09:11 66 97 05/27/22 09:06 70 98 05/27/22 09:04 64 124/70 05/27/22 09:01 65 98 05/27/22 08:59 18 05/27/22 08:59 36.8 C 18 05/27/22 08:30 18 05/27/22 08:30 18 05/27/22 08:56 66 99 05/27/22 08:51 72 100 05/27/22 08:49 68 117/69 05/27/22 08:46 73 100 05/27/22 08:41 70 98 05/27/22 08:36 75 98 05/27/22 08:34 65 122/70 05/27/22 08:31 76 99 05/27/22 08:00 16 05/27/22 08:00 16 05/27/22 08:26 69 99 05/27/22 07:30 18 05/27/22 07:30 18 05/27/22 08:21 73 100 05/27/22 08:20 71 118/75 05/27/22 08:16 72 99 05/27/22 08:11 71 98 05/27/22 08:06 72 97 05/27/22 08:05 66 118/64 05/27/22 08:01 68 98 05/27/22 07:56 67 98 05/27/22 07:51 75 98 05/27/22 07:49 69 124/60 05/27/22 07:46 76 98 05/27/22 07:41 75 97 05/27/22 07:36 74 97 05/27/22 07:35 78 118/63 05/27/22 07:31 84 96 05/27/22 07:26 76 97 05/27/22 07:21 84 98 05/27/22 07:20 76 110/68 05/27/22 07:16 81 97 05/27/22 07:11 37.1 C 83 18 98 05/27/22 07:06 76 98 05/27/22 07:04 82 116/69 05/27/22 07:00 18 05/27/22 07:00 18 05/27/22 07:01 80 97 05/27/22 06:30 16 05/27/22 06:30 16 05/27/22 06:56 86 98 05/27/22 06:51 77 97 05/27/22 06:49 85 115/70 05/27/22 06:46 77 97 05/27/22 06:41 75 96 05/27/22 06:36 98 05/27/22 06:36 76 05/27/22 06:36 72 115/63 05/27/22 06:31 74 97 05/27/22 06:26 79 98 05/27/22 06:21 73 96 05/27/22 06:20 75 98/57 L 05/27/22 06:16 73 96 05/27/22 06:11 76 96 05/27/22 06:06 97 05/27/22 06:06 73 05/27/22 06:06 71 99/53 L 05/27/22 06:00 16 05/27/22 06:00 16 05/27/22 06:01 76 96 05/27/22 05:56 71 97 05/27/22 05:51 72 97 05/27/22 05:50 69 108/58 L 05/27/22 05:46 73 97 05/27/22 05:40 36.9 C 05/27/22 05:41 94 H 98 05/27/22 05:36 80 98 Coding Level of Care Code None Diagnoses
--- NOTE | 2022-05-27 18:50 | Labor Progress Brief Note ---
Date of Service May 27, 2022 Subjective Actively pushing. FHT 160s, mod cinthya, +accels, late decels with ctx - not recurrent SVE 10/100/+1 Discussed with patient that will continue pushing at this time, reposition. station has not really improved - discussed that if no improvement, may need to deliver via csection. Assessment & Plan Admission and Anticipated Discharge Date Admission Date: May 26, 2022 Results & Data ([facility]) Vital Signs (Past 12 Hours) Vital Signs Temp Pulse Resp BP Pulse Ox 05/27/22 18:41 93 H 96 05/27/22 18:39 76 84 L 05/27/22 18:36 81 87 L 05/27/22 18:35 78 101/56 L 05/27/22 18:31 90 86 L 05/27/22 18:27 20 05/27/22 18:27 36.7 C 20 05/27/22 18:26 90 96 05/27/22 18:24 88 85 L 05/27/22 18:22 81 103/56 L 05/27/22 18:21 107 H 98 05/27/22 18:18 83 88 L 05/27/22 18:16 76 97 05/27/22 18:10 20 05/27/22 18:10 20 05/27/22 18:11 98 05/27/22 18:11 97 H 05/27/22 18:11 86 83 L 05/27/22 18:06 87 97 05/27/22 18:01 80 99 05/27/22 18:00 80 87 L 05/27/22 17:56 92 H 98 05/27/22 17:51 87 93 05/27/22 17:49 78 88 L 05/27/22 17:46 103 H 89 L 05/27/22 17:30 20 05/27/22 17:30 20 05/27/22 17:41 91 H 99 05/27/22 17:36 92 H 99 05/27/22 17:34 75 89 L 05/27/22 17:31 77 100 05/27/22 17:26 58 L 100 05/27/22 17:21 62 99 05/27/22 17:16 51 L 100 05/27/22 17:11 54 L 100 05/27/22 17:00 18 02/18/23 17:00 36.7 C 18 02/18/23 17:06 52 L 100 05/27/22 17:01 51 L 99 05/27/22 16:56 52 L 100 05/27/22 16:30 16 05/27/22 16:30 16 05/27/22 16:51 52 L 99 05/27/22 16:50 51 L 123/72 05/27/22 16:46 57 L 100 05/27/22 16:41 53 L 100 05/27/22 16:36 100 05/27/22 16:36 58 L 05/27/22 16:36 52 L 123/73 05/27/22 16:31 55 L 99 05/27/22 16:26 65 98 05/27/22 16:21 54 L 96 05/27/22 16:19 51 L 102/55 L 05/27/22 16:16 55 L 96 05/27/22 16:11 59 L 100 05/27/22 16:00 18 05/27/22 16:00 18 05/27/22 16:06 56 L 99 05/27/22 16:05 55 L 109/58 L 05/27/22 16:01 54 L 98 05/27/22 15:56 52 L 98 05/27/22 15:51 64 98 05/27/22 15:50 56 L 106/50 L 05/27/22 15:46 63 99 05/27/22 15:41 59 L 99 05/27/22 15:36 51 L 98 05/27/22 15:34 50 L 105/60 05/27/22 15:31 54 L 99 05/27/22 15:30 20 05/27/22 15:30 20 05/27/22 15:26 68 98 05/27/22 15:21 72 93 05/27/22 15:20 60 110/65 05/27/22 15:16 55 L 96 05/27/22 15:11 51 L 97 05/27/22 15:00 18 05/27/22 15:00 36.8 C 18 05/27/22 15:06 52 L 98 05/27/22 15:05 52 L 92/54 L 05/27/22 15:01 68 97 05/27/22 14:56 60 96 05/27/22 14:51 56 L 97 05/27/22 14:50 52 L 117/74 05/27/22 14:46 64 97 05/27/22 14:41 56 L 96 05/27/22 14:30 16 05/27/22 14:30 16 05/27/22 14:36 56 L 95 05/27/22 14:34 54 L 134/75 05/27/22 14:31 56 L 96 05/27/22 14:26 56 L 97 05/27/22 14:21 56 L 96 05/27/22 14:19 55 L 131/71 05/27/22 14:16 55 L 96 05/27/22 14:00 18 05/27/22 14:00 18 05/27/22 14:11 71 118/74 94 05/27/22 14:06 67 85/46 L 97 05/27/22 14:05 60 85/48 L 05/27/22 14:01 60 98 05/27/22 13:56 57 L 97 05/27/22 13:51 83 98 05/27/22 13:50 63 102/59 L 05/27/22 13:46 62 98 05/27/22 13:41 73 97 05/27/22 13:36 58 L 98 05/27/22 13:35 53 L 114/58 L 05/27/22 13:30 18 05/27/22 13:30 18 05/27/22 13:31 56 L 98 05/27/22 13:26 65 99 05/27/22 13:21 60 99 05/27/22 13:19 56 L 108/61 05/27/22 13:16 58 L 96 05/27/22 13:11 64 97 05/27/22 13:06 62 97 05/27/22 13:05 62 110/64 05/27/22 13:00 18 05/27/22 13:00 36.6 C 18 05/27/22 13:01 71 96 05/27/22 12:56 60 97 05/27/22 12:30 18 05/27/22 12:30 18 05/27/22 12:51 60 95 05/27/22 12:50 60 122/61 05/27/22 12:46 66 97 05/27/22 12:41 66 97 05/27/22 12:36 59 L 97 05/27/22 12:34 85 101/55 L 05/27/22 12:31 75 96 05/27/22 12:00 16 05/27/22 12:00 16 05/27/22 12:26 57 L 97 05/27/22 11:30 18 05/27/22 11:30 18 05/27/22 12:21 59 L 98 05/27/22 12:19 60 106/58 L 05/27/22 12:16 72 96 05/27/22 12:11 69 98 05/27/22 12:06 60 96 05/27/22 12:05 58 L 121/65 05/27/22 12:01 62 96 05/27/22 11:56 59 L 98 05/27/22 11:51 69 97 05/27/22 11:50 58 L 111/66 05/27/22 11:46 66 98 05/27/22 11:41 64 98 05/27/22 11:36 59 L 98 05/27/22 11:34 68 109/61 05/27/22 11:31 59 L 97 05/27/22 11:26 67 97 05/27/22 11:21 98 05/27/22 11:21 74 05/27/22 11:21 70 116/55 L 05/27/22 11:16 79 97 05/27/22 11:11 62 98 05/27/22 11:06 60 98 05/27/22 11:05 60 116/66 05/27/22 11:00 18 05/27/22 11:00 36.9 C 18 05/27/22 11:01 67 98 05/27/22 10:56 64 98 05/27/22 10:51 63 98 05/27/22 10:49 68 118/61 05/27/22 10:46 62 97 05/27/22 10:41 71 96 05/27/22 10:36 74 96 05/27/22 10:34 73 113/63 05/27/22 10:31 68 97 05/27/22 10:26 72 96 05/27/22 10:21 64 96 05/27/22 10:19 60 102/61 05/27/22 10:16 66 100 05/27/22 10:00 18 05/27/22 10:00 18 05/27/22 10:11 58 L 97 05/27/22 10:06 60 96 05/27/22 10:04 63 97/52 L 05/27/22 10:01 60 97 05/27/22 09:56 58 L 97 05/27/22 09:51 61 98 05/27/22 09:49 56 L 96/55 L 05/27/22 09:46 63 98 05/27/22 09:41 58 L 98 05/27/22 09:36 59 L 98 05/27/22 09:30 16 05/27/22 09:30 16 05/27/22 09:34 62 93/53 L 05/27/22 09:31 69 97 05/27/22 09:26 64 97 05/27/22 09:21 66 97 05/27/22 09:19 59 L 121/67 05/27/22 09:16 64 98 05/27/22 09:11 66 97 05/27/22 09:06 70 98 05/27/22 09:04 64 124/70 05/27/22 09:01 65 98 05/27/22 08:59 18 05/27/22 08:59 36.8 C 18 05/27/22 08:30 18 05/27/22 08:30 18 05/27/22 08:56 66 99 05/27/22 08:51 72 100 05/27/22 08:49 68 117/69 05/27/22 08:46 73 100 05/27/22 08:41 70 98 05/27/22 08:36 75 98 05/27/22 08:34 65 122/70 05/27/22 08:31 76 99 05/27/22 08:00 16 05/27/22 08:00 16 05/27/22 08:26 69 99 05/27/22 07:30 18 05/27/22 07:30 18 05/27/22 08:21 73 100 05/27/22 08:20 71 118/75 05/27/22 08:16 72 99 05/27/22 08:11 71 98 05/27/22 08:06 72 97 05/27/22 08:05 66 118/64 05/27/22 08:01 68 98 05/27/22 07:56 67 98 05/27/22 07:51 75 98 05/27/22 07:49 69 124/60 05/27/22 07:46 76 98 05/27/22 07:41 75 97 05/27/22 07:36 74 97 05/27/22 07:35 78 118/63 05/27/22 07:31 84 96 05/27/22 07:26 76 97 05/27/22 07:21 84 98 05/27/22 07:20 76 110/68 05/27/22 07:16 81 97 05/27/22 07:11 37.1 C 83 18 98 05/27/22 07:06 76 98 05/27/22 07:04 82 116/69 05/27/22 07:00 18 05/27/22 07:00 18 05/27/22 07:01 80 97 05/27/22 06:56 86 98 05/27/22 06:51 77 97 05/27/22 06:49 85 115/70 05/27/22 06:46 77 97 Coding Level of Care Code None Diagnoses
--- NOTE | 2022-05-27 19:22 | History & Physical Bridge Note ---
Date of Service May 27, 2022 History & Physical Bridge Note I have examined the patient, reviewed the History & Physical and in the interval since the performance of the History & Physical I have noted the following changes of clinical significance: Patient has now been pushing for approx 2h, station is still 1+, no improvement in station. FHT 160-170s, late decelerations. I recommended delivery by section. Patient agreeable. Informed consent discussed. Questions answered. Will proceed to OR.
[2022-05-27] MEDS ORDERED: AZITHROMYCIN 500 MG in DEXTROSE 5% 250 ML IV STA (19:29)
[2022-05-27] MEDS ORDERED: LACTATED RINGER'S 1,000 ML IV SCH ×2 (19:30→22:06)
[2022-05-27] MEDS ORDERED: CITRIC ACID/SODIUM CITRATE 15 ML UDC ONE (20:02)
[2022-05-27] MEDS ORDERED: PROPOFOL IV EMULSION 10 MG/ML 20 ML VIAL IV ONE ×7 (20:53→20:54)
[2022-05-27] MEDS ORDERED: MoRPHine SULFATE 4 MG/ML 1 ML CARP\\VIAL ONE (21:44)
--- NOTE | 2022-05-27 21:54 | Operative Report ---
PG Post Operative Report Pre & Post Diagnosis Operation Date: 05/27/22 19:30 Pre: spontaneous labor, arrest of descent Post: same I identified the patient and participated in the time-out.: Yes Procedure Operation Date: 05/27/22 19:30 Actual Procedures Primary Low Transverse Section in LD of live female child - Marge Gomez DO Surgeon Marge Gomez DO Regional Sales Executive Radha Patterson RN Estimated Blood Loss 800 Findings Consistent with Post-Op Diagnosis Viable female , Apgars 8/9. Weight pending, please see nursery records. Normal appearing uterus, tubes, ovaries. Specimens placenta, cord blood, cord gas Drains castro, blood tinged prior to case Anesthesia Type L&D Only Epidural Exists Complications none Disposition Accompanied Patient To Recovery: No Disposition: L&D Indications 31yo @ 40 3/7, presented in spontaneous labor. Progressed to complete dilation, 1+ station. head did not progress beyond 1+ station after 2 hours of pushing. At that point, Cat 2 tracing and maternal agreement to section. Description of Procedure The patient was seen in her labor and delivery room, risks benefits and alternatives to surgery were reviewed. Informed consent obtained. Questions were answered. She was taken to the operating room, epidural anesthesia was redosed. She was then prepared and draped in the usual sterile fashion in the supine position with a leftward tilt. Timeout was confirmed. A Pfannenstiel skin incision was made with a scalpel, and carried through to the underlying layer of fascia. Fascia was nicked at midline, and this incision was extended bilaterally. The superior aspect of the fascial incision was grasped with Shira clamps x2, elevated off the underlying rectus abdominis muscles, and dissected sharply and bluntly. In similar fashion, the inferior aspect of the fascial incision was dissected. The rectus abdominis muscles were , and the peritoneum was entered bluntly digitally. This was extended bilaterally. The bladder flap was taken down carefully using Metzenbaum scissors. Using a new scalpel, a low transverse uterine incision was created. Scant clear amniotic fluid noted. The infant was wedged deep in the pelvis, and attempt was made to bring the head up to the incision. However, baby began to flip in the uterus, with head going transverse maternal right. arm attempted to deliver, this was placed back into uterus. The head was then repositioned and a Kiwi vacuum was applied to the occiput in an attempt to deliver the head through the hysterotomy. One pop-off of vacuum, head was able to be positioned in a more favorable occiput-anterior position for delivery, the Kiwi was applied a second time and the head delivered through the hysterotomy. The arms and body followed. Spontaneous cry on the field. The cord was doubly clamped and cut, and the was handed off to the waiting community health promoter. A segment was retained for cord gases. Cord blood was obtained. The placenta was delivered spontaneously intact. The uterus was exteriorized, and cleared of all clots and debris. The hysterotomy incision was evaluated . There were bilateral cervical extensions. These were reapproximated using 0 Vicryl in a running locked stitch. The remainder of the hysterotomy was reapproximated in a running locked stitch with 0 Vicryl. A second layer of the same suture was used to imbricate the incision. Posterior uterus was evaluated and normal. There was additional bleeding at the apex of the hysterotomy on the right uterine side, therefore [place] stitches were used to obtain successful hemostasis. The uterus was returned to the abdomen, and gutters were cleared of clots and debris. There was a bleeding area at the center of the hysterotomy, this was repaired with a [id number] suture of 0-vicryl, and Willie powder was applied to raw tissue - oozing, but not actively bleeding. Excellent hemostasis was observed. The fascial incision was reapproximated using 0 Vicryl in a running stitch. The subcutaneous tissue was irrigated, and reapproximated using 2-0 plain gut in a running stitch. The skin was reapproximated using 4-0 Vicryl in a running subcuticular stitch. Steri-Strips and a bandage were applied. The patient tolerated the procedure well, and will be taken to the recovery area in stable and good condition. Sponge, instrument, needle counts correct x2. I debriefed patient, given her arrest of descent and bilateral uterine extensions, I advised that she is not a good candidate for future . I attest to the content of the Intraoperative Record and any orders documented therein. Any exceptions are noted below. OB Procedure Charges 22147
[2022-05-27 21:57] LABS: Base Excess Cord Arterial Bld -4.9 mEq/L (-9-1.8); Base Excess Cord Venous Blood -5.8 mEq/L (-7.7-1.9); CO2 Cord Arterial Blood 39 mmHg (39.1-73.5); Cord Venous Blood HCO3 20 mmol/L (18.4-26.8); Cord Venous Blood PCO2 40 mmHg (30.4-57.2); Cord Venous Blood PO2 21 mmHg (14.1-43.3); Cord Venous Blood pH 7.31 (7.20-7.44); HCO3 Cord Arterial Blood 21 mmol/L (19.7-28.5); O2 Saturation Cord Venous Bld < 60.0 % (<68); Oxygen Sat Cord Arterial Blood < 60.0 % (<60); PO2 Cord Arterial Blood 26 mmHg (4.1-31.7); pH Cord Arterial Blood 7.33 (7.1-7.38)
[2022-05-27] MEDS ORDERED: DIPHTHERIA/TETANUS/PERTUSSIS 0.5mL SYR/VIAL (Age 7+yrs) IM ONE (22:06)
[2022-05-27] MEDS ORDERED: HYDROCORTISONE ACETATE 25 MG SUPP PR PRN (22:06)
[2022-05-27] MEDS ORDERED: SENNA 8.6 MG TAB PO PRN (22:06)
[2022-05-27] MEDS ORDERED: BENZOCAINE 20% AER SPR 82.5 GM CAN EXT PRN (22:06)
[2022-05-27] MEDS ORDERED: MAGNESIUM HYDROXIDE SUSP 30 ML UDC PO PRN (22:06)
[2022-05-27] MEDS ORDERED: MoRPHine SULFATE PF 1 MG/ML 10 ML AMP/VIAL ONE (22:07)
[2022-05-27] MEDS: OXYTOCIN 30 UNITS in LACTATED RINGER'S 1,000 ML IV SCH (22:30)
[2022-05-27] MEDS ORDERED: ACETAMINOPHEN 1,000 MG/100 ML VIAL IV STA (22:51)
[2022-05-27] MEDS ORDERED: ACETAMINOPHEN 1000 MG/100 ML IV IV ONE (22:53)
[2022-05-28] MEDS ORDERED: NALOXONE HCL 0.4 MG/1 ML VIAL/CARP IV PRN ×2 (00:18→00:39)
[2022-05-28] MEDS ORDERED: diphenhydrAMINE 50 MG/ML VIAL IV PRN ×3 (00:18→18:44)
[2022-05-28] MEDS ORDERED: MoRPHine SULFATE PF 1 MG/ML 10 ML AMP/VIAL INT SPINAL ONE ×2 (00:18→00:39)
[2022-05-28] MEDS ORDERED: ePHEDrine sulfate 50 MG/ML AMP IV PRN ×2 (00:18→00:39)
[2022-05-28] MEDS ORDERED: LACTATED RINGER'S 500 ML IV PRN ×2 (00:18→00:39)
[2022-05-28] MEDS ORDERED: NALOXONE HCL 0.08 MG in SYRINGE 1.8 ML IV PRN ×2 (00:18→00:39)
[2022-05-28] MEDS ORDERED: NALOXONE HCL 1 MG in SODIUM CHLORIDE 0.9% 1000ML 1,000 ML IV PRN ×2 (00:18→00:39)
[2022-05-28] MEDS ORDERED: NALBUPHINE HCL INJ 10 MG/ML AMP IV PRN ×2 (00:18→00:39)
--- NOTE | 2022-05-28 00:19 | Anesthesiology Progress Note ---
Date of Service May 28, 2022 Anesthesia Post Procedure Vital Signs Vital Signs: Temp Pulse Resp BP Pulse Ox 05/27/22 23:40 36.8 C 18 05/27/22 23:10 18 05/27/22 22:40 36.7 C 18 05/27/22 22:30 16 05/27/22 22:20 18 05/27/22 22:10 16 05/27/22 22:00 16 05/27/22 21:50 18 05/27/22 21:40 36.7 C 18 05/28/22 00:15 63 97 05/28/22 00:10 62 106/63 98 05/28/22 00:05 59 L 99 05/28/22 00:00 60 107/65 99 05/27/22 23:55 58 L 99 05/27/22 23:50 100 05/27/22 23:50 58 L 05/27/22 23:50 56 L 104/61 05/27/22 23:45 60 100 05/27/22 23:40 63 105/65 99 05/27/22 23:35 61 99 05/27/22 23:30 60 105/68 99 05/27/22 23:25 66 98 05/27/22 23:20 98 05/27/22 23:20 66 05/27/22 23:20 65 105/64 05/27/22 23:15 67 99 05/27/22 23:10 68 101/64 99 05/27/22 23:05 71 100 05/27/22 23:00 68 99/63 L 100 05/27/22 22:55 79 100 05/27/22 22:50 100 05/27/22 22:50 67 05/27/22 22:50 70 100/61 05/27/22 22:45 73 100 05/27/22 22:40 65 97/61 L 100 05/27/22 22:35 65 99 05/27/22 22:30 69 97/61 L 100 05/27/22 22:25 69 100 05/27/22 22:23 70 96/53 L 05/27/22 22:20 68 100 05/27/22 22:15 66 100 05/27/22 22:10 67 99 05/27/22 22:11 66 99/65 L 05/27/22 22:05 74 90 05/27/22 22:03 68 115/73 05/27/22 22:00 83 95 05/27/22 21:55 69 98 05/27/22 21:50 71 86 L 05/27/22 21:47 59 L 108/58 L 05/27/22 21:45 76 98 05/27/22 21:42 82 65/39 L 92 05/27/22 21:40 97 05/27/22 21:40 78 02 21:40 77/41 L 05/27/22 21:40 77 75/39 L 05/27/22 20:01 98 H 95 05/27/22 19:56 95 H 95 05/27/22 19:51 96 H 92 05/27/22 19:52 100 H 135/58 L 05/27/22 19:46 103 H 98 05/27/22 19:41 82 97 05/27/22 19:36 94 H 99 05/27/22 19:31 89 97 05/27/22 19:26 85 96 05/27/22 19:21 98 H 95 05/27/22 19:02 18 05/27/22 19:02 36.7 C 18 05/27/22 19:16 81 94 05/27/22 19:13 91 H 82 L 05/27/22 19:11 86 94 05/27/22 18:30 18 05/27/22 18:30 18 05/27/22 19:08 94 H 86 L 05/27/22 19:06 113 H 94 05/27/22 19:04 107 H 91/55 L 05/27/22 19:01 113 H 97 05/27/22 18:56 89 98 05/27/22 18:54 101 H 89 L 05/27/22 18:51 84 97 05/27/22 18:50 82 94/57 L 05/27/22 18:49 89 88 L 05/27/22 18:46 84 89 L 05/27/22 18:41 93 H 96 05/27/22 18:39 76 84 L 05/27/22 18:36 81 87 L 05/27/22 18:35 78 101/56 L 05/27/22 18:31 90 86 L 05/27/22 18:27 20 05/27/22 18:27 36.7 C 20 05/27/22 18:26 90 96 05/27/22 18:24 88 85 L 05/27/22 18:22 81 103/56 L 05/27/22 18:21 107 H 98 05/27/22 18:18 83 88 L 05/27/22 18:16 76 97 05/27/22 18:10 20 05/27/22 18:10 20 05/27/22 18:11 98 05/27/22 18:11 97 H 05/27/22 18:11 86 83 L 05/27/22 18:06 87 97 05/27/22 18:01 80 99 05/27/22 18:00 80 87 L 05/27/22 17:56 92 H 98 05/27/22 17:51 87 93 05/27/22 17:49 78 88 L 05/27/22 17:46 103 H 89 L 05/27/22 17:30 20 05/27/22 17:30 20 05/27/22 17:41 91 H 99 05/27/22 17:36 92 H 99 05/27/22 17:34 75 89 L 05/27/22 17:31 77 100 05/27/22 17:26 58 L 100 05/27/22 17:21 62 99 05/27/22 17:16 51 L 100 05/27/22 17:11 54 L 100 05/27/22 17:00 18 05/27/22 17:00 36.7 C 18 05/27/22 17:06 52 L 100 05/27/22 17:01 51 L 99 05/27/22 16:56 52 L 100 05/27/22 16:30 16 05/27/22 16:30 16 05/27/22 16:51 52 L 99 05/27/22 16:50 51 L 123/72 05/27/22 16:46 57 L 100 05/27/22 16:41 53 L 100 05/27/22 16:36 100 05/27/22 16:36 58 L 05/27/22 16:36 52 L 123/73 05/27/22 16:31 55 L 99 05/27/22 16:26 65 98 05/27/22 16:21 54 L 96 05/27/22 16:19 51 L 102/55 L 05/27/22 16:16 55 L 96 05/27/22 16:11 59 L 100 05/27/22 16:00 18 05/27/22 16:00 18 05/27/22 16:06 56 L 99 05/27/22 16:05 55 L 109/58 L 05/27/22 16:01 54 L 98 05/27/22 15:56 52 L 98 05/27/22 15:51 64 98 05/27/22 15:50 56 L 106/50 L 05/27/22 15:46 63 99 05/27/22 15:41 59 L 99 05/27/22 15:36 51 L 98 05/27/22 15:34 50 L 105/60 05/27/22 15:31 54 L 99 05/27/22 15:30 20 05/27/22 15:30 20 05/27/22 15:26 68 98 05/27/22 15:21 72 93 05/27/22 15:20 60 110/65 05/27/22 15:16 55 L 96 05/27/22 15:11 51 L 97 05/27/22 15:00 18 05/27/22 15:00 36.8 C 18 05/27/22 15:06 52 L 98 05/27/22 15:05 52 L 92/54 L 05/27/22 15:01 68 97 05/27/22 14:56 60 96 05/27/22 14:51 56 L 97 05/27/22 14:50 52 L 117/74 05/27/22 14:46 64 97 05/27/22 14:41 56 L 96 05/27/22 14:30 16 05/27/22 14:30 16 05/27/22 14:36 56 L 95 05/27/22 14:34 54 L 134/75 05/27/22 14:31 56 L 96 05/27/22 14:26 56 L 97 05/27/22 14:21 56 L 96 05/27/22 14:19 55 L 131/71 05/27/22 14:16 55 L 96 05/27/22 14:00 18 05/27/22 14:00 18 05/27/22 14:11 71 118/74 94 05/27/22 14:06 67 85/46 L 97 05/27/22 14:05 60 85/48 L 05/27/22 14:01 60 98 05/27/22 13:56 57 L 97 05/27/22 13:51 83 98 05/27/22 13:50 63 102/59 L 05/27/22 13:46 62 98 05/27/22 13:41 73 97 05/27/22 13:36 58 L 98 05/27/22 13:35 53 L 114/58 L 05/27/22 13:30 18 05/27/22 13:30 18 05/27/22 13:31 56 L 98 05/27/22 13:26 65 99 05/27/22 13:21 60 99 05/27/22 13:19 56 L 108/61 05/27/22 13:16 58 L 96 05/27/22 13:11 64 97 05/27/22 13:06 62 97 05/27/22 13:05 62 110/64 05/27/22 13:00 18 05/27/22 13:00 36.6 C 18 05/27/22 13:01 71 96 05/27/22 12:56 60 97 05/27/22 12:30 18 05/27/22 12:30 18 05/27/22 12:51 60 95 05/27/22 12:50 60 122/61 05/27/22 12:46 66 97 05/27/22 12:41 66 97 05/27/22 12:36 59 L 97 05/27/22 12:34 85 101/55 L 05/27/22 12:31 75 96 05/27/22 12:00 16 05/27/22 12:00 16 05/27/22 12:26 57 L 97 05/27/22 11:30 18 05/27/22 11:30 18 05/27/22 12:21 59 L 98 05/27/22 12:19 60 106/58 L 05/27/22 12:16 72 96 05/27/22 12:11 69 98 05/27/22 12:06 60 96 05/27/22 12:05 58 L 121/65 05/27/22 12:01 62 96 05/27/22 11:56 59 L 98 05/27/22 11:51 69 97 05/27/22 11:50 58 L 111/66 05/27/22 11:46 66 98 05/27/22 11:41 64 98 02/18/23 11:36 59 L 98 05/27/22 11:34 68 109/61 05/27/22 11:31 59 L 97 05/27/22 11:26 67 97 05/27/22 11:21 98 05/27/22 11:21 74 05/27/22 11:21 70 116/55 L 05/27/22 11:16 79 97 05/27/22 11:11 62 98 05/27/22 11:06 60 98 05/27/22 11:05 60 116/66 05/27/22 11:00 18 05/27/22 11:00 36.9 C 18 05/27/22 11:01 67 98 05/27/22 10:56 64 98 05/27/22 10:51 63 98 05/27/22 10:49 68 118/61 05/27/22 10:46 62 97 05/27/22 10:41 71 96 05/27/22 10:36 74 96 05/27/22 10:34 73 113/63 05/27/22 10:31 68 97 05/27/22 10:26 72 96 05/27/22 10:21 64 96 05/27/22 10:19 60 102/61 05/27/22 10:16 66 100 05/27/22 10:00 18 05/27/22 10:00 18 05/27/22 10:11 58 L 97 05/27/22 10:06 60 96 05/27/22 10:04 63 97/52 L 05/27/22 10:01 60 97 05/27/22 09:56 58 L 97 05/27/22 09:51 61 98 05/27/22 09:49 56 L 96/55 L 05/27/22 09:46 63 98 05/27/22 09:41 58 L 98 05/27/22 09:36 59 L 98 05/27/22 09:30 16 05/27/22 09:30 16 05/27/22 09:34 62 93/53 L 05/27/22 09:31 69 97 05/27/22 09:26 64 97 05/27/22 09:21 66 97 05/27/22 09:19 59 L 121/67 05/27/22 09:16 64 98 05/27/22 09:11 66 97 05/27/22 09:06 70 98 05/27/22 09:04 64 124/70 05/27/22 09:01 65 98 05/27/22 08:59 18 05/27/22 08:59 36.8 C 18 05/27/22 08:30 18 05/27/22 08:30 18 05/27/22 08:56 66 99 05/27/22 08:51 72 100 05/27/22 08:49 68 117/69 05/27/22 08:46 73 100 05/27/22 08:41 70 98 05/27/22 08:36 75 98 05/27/22 08:34 65 122/70 05/27/22 08:31 76 99 05/27/22 08:00 16 05/27/22 08:00 16 05/27/22 08:26 69 99 05/27/22 07:30 18 05/27/22 07:30 18 05/27/22 08:21 73 100 05/27/22 08:20 71 118/75 05/27/22 08:16 72 99 05/27/22 08:11 71 98 05/27/22 08:06 72 97 05/27/22 08:05 66 118/64 05/27/22 08:01 68 98 05/27/22 07:56 67 98 05/27/22 07:51 75 98 05/27/22 07:49 69 124/60 05/27/22 07:46 76 98 05/27/22 07:41 75 97 05/27/22 07:36 74 97 05/27/22 07:35 78 118/63 05/27/22 07:31 84 96 05/27/22 07:26 76 97 05/27/22 07:21 84 98 05/27/22 07:20 76 110/68 05/27/22 07:16 81 97 05/27/22 07:11 37.1 C 83 18 98 05/27/22 07:06 76 98 05/27/22 07:04 82 116/69 05/27/22 07:00 18 05/27/22 07:00 18 05/27/22 07:01 80 97 05/27/22 06:30 16 05/27/22 06:30 16 05/27/22 06:56 86 98 05/27/22 06:51 77 97 05/27/22 06:49 85 115/70 05/27/22 06:46 77 97 05/27/22 06:41 75 96 05/27/22 06:36 98 05/27/22 06:36 76 05/27/22 06:36 72 115/63 05/27/22 06:31 74 97 05/27/22 06:26 79 98 05/27/22 06:21 73 96 05/27/22 06:20 75 98/57 L 05/27/22 06:16 73 96 05/27/22 06:11 76 96 05/27/22 06:06 97 05/27/22 06:06 73 05/27/22 06:06 71 99/53 L 05/27/22 06:00 16 05/27/22 06:00 16 05/27/22 06:01 76 96 05/27/22 05:56 71 97 05/27/22 01:34 18 05/27/22 01:34 18 05/27/22 05:51 72 97 05/27/22 05:50 69 108/58 L 05/27/22 05:46 73 97 05/27/22 05:40 36.9 C 05/27/22 05:41 94 H 98 05/27/22 05:30 18 05/27/22 05:30 18 05/27/22 05:36 80 98 05/27/22 05:34 78 116/71 05/27/22 05:31 79 99 05/27/22 05:26 78 97 05/27/22 05:00 16 05/27/22 05:00 16 05/27/22 05:21 76 98 05/27/22 05:20 70 114/70 05/27/22 05:16 81 99 05/27/22 05:11 81 99 05/27/22 05:06 76 99 05/27/22 05:04 77 117/70 05/27/22 05:01 78 97 05/27/22 04:56 72 97 05/27/22 04:51 69 100 05/27/22 04:50 75 117/67 05/27/22 04:46 81 100 05/27/22 04:41 74 99 05/27/22 04:36 72 100 05/27/22 04:34 72 118/68 05/27/22 04:30 18 05/27/22 04:30 18 05/27/22 04:31 73 98 05/27/22 04:26 78 100 05/27/22 04:21 72 99 05/27/22 04:19 84 112/66 05/27/22 04:16 70 100 05/27/22 04:11 66 100 05/27/22 04:00 16 05/27/22 04:00 16 05/27/22 04:06 72 100 05/27/22 04:05 74 112/66 05/27/22 04:01 72 99 05/27/22 03:56 68 100 05/27/22 03:51 73 100 05/27/22 03:50 72 115/71 05/27/22 03:46 73 100 05/27/22 03:30 18 05/27/22 03:30 18 05/27/22 03:43 71 86 L 05/27/22 03:37 36.7 C 05/27/22 03:41 73 100 05/27/22 03:36 77 100 05/27/22 03:31 79 100 05/27/22 03:29 75 118/63 05/27/22 03:26 85 100 05/27/22 03:24 67 114/62 05/27/22 03:21 68 100 05/27/22 03:19 69 116/63 05/27/22 03:16 69 100 05/27/22 03:14 68 115/60 05/27/22 03:11 77 100 05/27/22 03:09 77 114/64 05/27/22 03:06 86 100 05/27/22 03:04 83 112/60 05/27/22 03:01 90 99 05/27/22 03:00 68 110/66 05/27/22 02:56 73 100 05/27/22 02:55 68 112/62 05/27/22 02:51 82 100 05/27/22 02:49 80 111/62 05/27/22 02:46 81 100 05/27/22 02:44 80 119/56 L 05/27/22 02:41 75 100 05/27/22 02:40 86 114/65 05/27/22 02:36 84 100 05/27/22 02:35 86 109/66 05/27/22 02:31 76 100 05/27/22 02:30 16 05/27/22 02:30 16 05/27/22 02:29 83 109/61 05/27/22 02:26 86 100 05/27/22 02:24 74 18 108/61 05/27/22 02:01 18 05/27/22 02:01 18 05/27/22 02:21 77 100 05/27/22 02:20 77 16 112/60 05/27/22 02:16 95 H 100 05/27/22 02:14 97 H 18 100/59 L 05/27/22 02:11 82 100 05/27/22 02:09 99 H 16 96/55 L 05/27/22 02:06 100 05/27/22 02:06 87 05/27/22 02:06 88 87/54 L 05/27/22 02:01 100 05/27/22 02:01 112 H 05/27/22 02:01 110 H 109/58 L 05/27/22 01:56 99 05/27/22 01:56 71 05/27/22 01:56 65 87/53 L 05/27/22 01:50 36.6 C 72 100 05/27/22 01:45 78 18 98/58 L 100 05/27/22 01:39 88 100 05/27/22 01:38 86 20 109/62 05/27/22 01:36 83 18 114/63 05/27/22 01:34 100 05/27/22 01:34 77 05/27/22 01:34 85 115/60 05/27/22 01:31 68 18 118/59 L 05/27/22 01:29 70 99 05/27/22 01:30 71 93 05/27/22 01:24 59 L 100 05/27/22 01:19 50 L 100 05/27/22 01:14 70 99 Pain Intensity Abdomen: Pain Intensity: 6 Notes Mental Status: alert / awake / arousable Patient Amnestic to Procedure: No Nausea / Vomiting: adequately controlled Pain: improving with treatment Airway Patency, RR, SpO2: stable & adequate BP & HR: stable & adequate Hydration State: stable & adequate Neuraxial Anesthesia: sensory block is resolving Anesthetic Complications: no major complications apparent and Pt Satisfied with anesthetic care
--- NOTE | 2022-05-28 00:20 | Anesthesiology Consultation ---
Date of Service May 28, 2022 Assessment & Plan Chart Review Chart Review: Acceptable Risk for Surgery Consults Requested none ASA ASA2 Proposed Anesthesia Anesthesia Type: Labor Epidural Risk / Benefits Reviewed With: PT / POA / Parent / Guardian, Accepts Plan and Informed Consent Obtained History Surgery Operation Date: 05/27/22 19:30 Proposed Procedures p Section in - Marge Gomez, DO Height/Weight Height: 5 ft 4 in Weight: 98.883 kg Allergies Allergy/AdvReac Type Severity Reaction Status Date / Time No Known Allergies Allergy Verified 05/26/22 23:52 Medications Home Medications Medication Instructions Recorded Confirmed Last Taken prenat.vits,srinivasa,ths-nces-cndgu 1 tab PO DAILY 10/04/21 05/26/22 05/25/22 21:00 breast pump #1 ea 04/07/22 05/25/22 Unknown sertraline 50 mg tablet (Zoloft) 50 mg PO DAILY 05/26/22 05/26/22 05/25/22 21:00 Active Medications Generic Name Dose Route Start Last Admin Trade Name Freq PRN Reason Stop Dose Admin Oxytocin 30 units/ Lactated 1,003 mls @ 125 mls/hr 05/27/22 22:06 05/27/22 23:15 Ringer's IV 05/28/22 14:08 125 mls/hr .Q8H2M SHERI Infusion Ropivacaine 100 ml 05/27/22 01:09 05/27/22 15:42 Fentanyl 2mcg/Ml Ropivacaine 1.25mg/Ml 100 Ml Bag EPI 05/28/22 01:08 100 ml PRN PRN Administration Pain R/T Labor Protocol NPO Date Last Intake of Fluids: 05/27/22 Time Last Intake of Fluids: 17:30 Date Last Intake of Solids: 05/26/22 Time Last Intake of Solids: 18:00 Past Medical History Medical History (Updated 05/27/22 @ 07:19 by Juanita Botello MD, FACOG) Anxiety Exercise / Class Metabolic Activity II 4-5 Yardwork/Stairs/Walk up hill Past Surgical History Surgical History History of ankle surgery S/P appendectomy Past Anesthesia History No Hx of Anesthesia Complications History of PONV No Hx of PONV Social History Smoking Status: Former smoker tobacco type: e-cigarettes Smoking End Date: quit 1 year ago Hx Alcohol Use: No Hx Substance Use: No substance use type: does not use Physical Exam Vital Signs Last Vital Signs Temp 36.8 C 05/27/22 23:40 Pulse 63 05/28/22 00:15 Resp 18 05/27/22 23:40 BP 106/63 05/28/22 00:10 Pulse Ox 97 05/28/22 00:15 Constitutional no acute distress ENMT Thyromental Distance: > or= 3.5 Finger Breadths Mallampati Class: II Neck normal visual inspection Respiratory normal respiratory effort; no respiratory distress Auscultation: lungs clear to auscultation bilaterally Cardiovascular Rate/Rhythm: regular rate and regular rhythm Heart Sounds: no murmur Psychiatric Orientation: alert and oriented x 3 Testing Laboratory Results 05/27/22 00:07 Blood Type A Negative 05/27/22 00:07 Antibody Screen NEGATIVE 05/27/22 00:07
[2022-05-28] MEDS ORDERED: DC INTRASPINAL MORPHINE SCH ×2 (00:30→00:45)
[2022-05-28] MEDS ORDERED: SODIUM CHLORIDE 0.9% 1000ML 1,000 ML IV SCH ×2 (00:30→00:45)
[2022-05-28] MEDS ORDERED: NO NARCOTICS OR SEDATIVES SCH ×2 (00:30→00:45)
[2022-05-28] MEDS ORDERED: ONDANSETRON INJ 2 MG/ML 2 ML VIAL IV PRN ×2 (00:39→18:44)
[2022-05-28] MEDS ORDERED: HYDROmorphone INJ 0.5 MG/0.5 ML SYR IV PRN (00:39)
[2022-05-28] MEDS ORDERED: SODIUM CHLORIDE 0.9% 250 ML IV PRN (01:27)
[2022-05-28] MEDS: KETOROLAC 30 MG/ML VIAL IV PRN ×3 (06:31→18:34)
[2022-05-28 07:13] LABS: Basophils # (auto) 0.02 K/uL (0-0.2); Basophils % (auto) 0.2 %; Eosinophils # (auto) 0.02 K/uL (0-0.50); Eosinophils % (auto) 0.2 %; Hematocrit (blood only) 22.5 % (37.0-47.0); Immature Granulocytes # (auto) 0.02 K/uL (0.01-0.20); Immature Granulocytes % (auto) 0.2 %; Lymphocytes # (auto) 1.07 K/uL (1.2-3.4); Lymphocytes % (auto) 12.5 %; Mean Corpuscular Hemoglobin 30.4 pg (25.0-34.0); Mean Corpuscular Hgb Conc 35.6 g/dL (32.0-36.0); Mean Corpuscular Volume 85.6 fL (80.0-100.0); Monocytes # (auto) 0.43 K/uL (0.11-0.59); Neutrophils # (auto) 6.98 K/uL (1.40-6.50); Neutrophils % (auto) 81.9 %; Platelet Count 109 K/uL (130-400); RDW Coefficient of Variation 12.9 % (11.5-14.5); RDW Standard Deviation 39.8 fL (36.4-46.3); Red Blood Count 2.63 M/uL (4.20-5.40); White Blood Count 8.54 K/ul (4.8-10.8)
[2022-05-28] MEDS: SIMETHICONE 80 MG CHEW PO SCH ×4 (07:36→20:28)
[2022-05-28] MEDS: SERTRALINE HCL 50 MG TABLET PO SCH (07:36)
[2022-05-28] MEDS: DOCUSATE SODIUM 100 MG CAP PO SCH ×2 (07:36→20:28)
[2022-05-28] MEDS: FERROUS SULFATE 325 MG TAB PO SCH (07:36)
[2022-05-28] MEDS: PRENATAL VITAMIN 1 TAB PO SCH (07:36)
--- NOTE | 2022-05-28 07:57 | Obstetrical Progress Note ---
Date of Service May 28, 2022 Assessment & Plan (1) care following delivery: POD#1 doing well. Bandage C/D. Adequate urine output. Stable vitals. Hgb drop to 8, asymptomatic anemia of acute loss d/t . Will continue to monitor. Goals for today: ambulation, remove catheter later today. Advance diet. Subjective Ambulation: ambulating normally Voiding: no voiding problems Diet Tolerance:: regular diet Lochia:: Moderate Review of Systems All systems reviewed & are unremarkable except as noted in HPI & below Physical Exam Constitutional WD/WN, vitals as above no acute distress Respiratory normal respiratory effort Cardiovascular Rate/Rhythm: regular rate and regular rhythm Gastrointestinal (Abdomen) Inspection/Auscultation: abdomen normal to inspection; abdomen not distended Percussion/Palpation: abdomen soft Genitourinary OB Exam Abdomen: + fundal height Fundus: + firm; not tender Results & Data ([facility]) Vital Signs (Past 12 Hours) Vital Signs Temp Pulse Pulse Resp BP BP Pulse Ox 05/28/22 07:20 36.6 C 72 18 105/67 96 05/28/22 07:20 18 96 05/28/22 06:00 18 97 05/28/22 05:00 16 95 05/28/22 04:00 16 97 05/28/22 02:00 18 95 05/28/22 03:05 36.7 C 65 18 105/66 95 05/28/22 01:25 36.4 C L 59 L 18 98/59 L 98 05/28/22 00:40 36.7 C 18 05/27/22 23:40 36.8 C 18 05/27/22 23:10 18 05/27/22 22:40 36.7 C 18 05/27/22 22:30 16 05/27/22 22:20 18 05/27/22 22:10 16 05/27/22 22:00 16 05/27/22 21:50 18 05/27/22 21:40 36.7 C 18 05/28/22 00:48 59 L 106/63 05/28/22 00:45 64 98 05/28/22 00:40 58 L 101/58 L 96 05/28/22 00:39 61 94 05/28/22 00:35 59 L 96 05/28/22 00:30 98 05/28/22 00:30 58 L 02/19/23 00:30 57 L 109/60 05/28/22 00:25 61 98 05/28/22 00:20 64 107/61 97 05/28/22 00:15 63 97 05/28/22 00:10 62 106/63 98 05/28/22 00:05 59 L 99 05/28/22 00:00 60 107/65 99 05/27/22 23:55 58 L 99 05/27/22 23:50 100 05/27/22 23:50 58 L 05/27/22 23:50 56 L 104/61 05/27/22 23:45 60 100 05/27/22 23:40 63 105/65 99 05/27/22 23:35 61 99 05/27/22 23:30 60 105/68 99 05/27/22 23:25 66 98 05/27/22 23:20 98 05/27/22 23:20 66 05/27/22 23:20 65 105/64 05/27/22 23:15 67 99 05/27/22 23:10 68 101/64 99 05/27/22 23:05 71 100 05/27/22 23:00 68 99/63 L 100 05/27/22 22:55 79 100 05/27/22 22:50 100 05/27/22 22:50 67 05/27/22 22:50 70 100/61 05/27/22 22:45 73 100 05/27/22 22:40 65 97/61 L 100 05/27/22 22:35 65 99 05/27/22 22:30 69 97/61 L 100 05/27/22 22:25 69 100 05/27/22 22:23 70 96/53 L 05/27/22 22:20 68 100 05/27/22 22:15 66 100 05/27/22 22:10 67 99 05/27/22 22:11 66 99/65 L 05/27/22 22:05 74 90 05/27/22 22:03 68 115/73 05/27/22 22:00 83 95 05/27/22 21:55 69 98 05/27/22 21:50 71 86 L 05/27/22 21:47 59 L 108/58 L 05/27/22 21:45 76 98 05/27/22 21:42 82 65/39 L 92 05/27/22 21:40 97 05/27/22 21:40 78 05/27/22 21:40 77/41 L 05/27/22 21:40 77 75/39 L 05/27/22 20:01 98 H 95 05/27/22 19:56 95 H 95 O2 Del Method 05/28/22 07:20 Room Air 05/28/22 07:20 05/28/22 06:00 05/28/22 05:00 05/28/22 04:00 05/28/22 02:00 05/28/22 03:05 Room Air 05/28/22 01:25 Room Air 05/28/22 00:40 05/27/22 23:40 05/27/22 23:10 05/27/22 22:40 05/27/22 22:30 05/27/22 22:20 05/27/22 22:10 05/27/22 22:00 05/27/22 21:50 05/27/22 21:40 05/28/22 00:48 05/28/22 00:45 05/28/22 00:40 05/28/22 00:39 05/28/22 00:35 05/28/22 00:30 05/28/22 00:30 05/28/22 00:30 05/28/22 00:25 05/28/22 00:20 05/28/22 00:15 05/28/22 00:10 05/28/22 00:05 05/28/22 00:00 05/27/22 23:55 05/27/22 23:50 05/27/22 23:50 05/27/22 23:50 05/27/22 23:45 05/27/22 23:40 05/27/22 23:35 05/27/22 23:30 05/27/22 23:25 05/27/22 23:20 05/27/22 23:20 05/27/22 23:20 05/27/22 23:15 05/27/22 23:10 05/27/22 23:05 05/27/22 23:00 05/27/22 22:55 05/27/22 22:50 05/27/22 22:50 05/27/22 22:50 05/27/22 22:45 05/27/22 22:40 05/27/22 22:35 05/27/22 22:30 05/27/22 22:25 05/27/22 22:23 05/27/22 22:20 05/27/22 22:15 05/27/22 22:10 05/27/22 22:11 05/27/22 22:05 05/27/22 22:03 05/27/22 22:00 05/27/22 21:55 05/27/22 21:50 05/27/22 21:47 05/27/22 21:45 05/27/22 21:42 05/27/22 21:40 05/27/22 21:40 05/27/22 21:40 05/27/22 21:40 05/27/22 20:01 05/27/22 19:56
--- NOTE | 2022-05-28 08:55 | Anesthesia Procedure Note ---
Date of Service May 28, 2022 Anesthesia Post Epidural Note Vital Signs Vital Signs: Temp Pulse Resp BP Pulse Ox O2 Del Method 97.9 F 72 18 105/67 96 Room Air 05/28/22 08:30 05/28/22 08:30 05/28/22 08:30 05/28/22 08:30 05/28/22 08:30 05/28/22 07:20 Pain Intensity Abdomen: Pain Intensity: 2 Notes Mental Status: alert / awake / arousable and participated in evaluation Nausea / Vomiting: adequately controlled Pain: adequately controlled Airway Patency, RR, SpO2: stable & adequate BP & HR: stable & adequate Hydration State: stable & adequate Neuraxial Anesthesia: was administered and sensory block is resolving Anesthetic Complications: no major complications apparent and Pt Satisfied with anesthetic care Epidural: Removed without complications and With tip intact
[2022-05-28] MEDS: OXYTOCIN 30 UNITS in LACTATED RINGER'S 1,000 ML IV SCH (08:56)
[2022-05-28] MEDS ORDERED: MEASLES, MUMPS & RUBELLA VIRUS VIAL SQ ONE (13:58)
[2022-05-28] MEDS ORDERED: KETOROLAC 30 MG/ML VIAL IV PRN (18:44)
[2022-05-28] MEDS ORDERED: diphenhydrAMINE Capsule 25 MG CAP PO PRN (18:44)
[2022-05-28] MEDS ORDERED: PROMETHAZINE HCL 25 MG in SODIUM CHLORIDE 0.9% 50 ML IV PRN (18:44)
[2022-05-28] MEDS ORDERED: bisacodyL 5 MG TABEC PO SCH (20:00)
[2022-05-29] MEDS ORDERED: diphenhydrAMINE 50 MG/ML VIAL IV PRN (00:44)
[2022-05-29] MEDS ORDERED: ONDANSETRON INJ 2 MG/ML 2 ML VIAL IV PRN (00:44)
[2022-05-29] MEDS ORDERED: diphenhydrAMINE Capsule 25 MG CAP PO PRN (00:44)
[2022-05-29] MEDS ORDERED: KETOROLAC 30 MG/ML VIAL IV PRN (00:44)
[2022-05-29] MEDS ORDERED: oxyCODONE/ACETAMINOPHEN 5mg/325mg TAB PO PRN (00:44)
[2022-05-29] MEDS ORDERED: PROMETHAZINE HCL 25 MG in SODIUM CHLORIDE 0.9% 50 ML IV PRN (00:44)
[2022-05-29] MEDS: IBUPROFEN 600 MG TAB PO PRN ×5 (01:35→21:38)
[2022-05-29] MEDS: oxyCODONE/ACETAMINOPHEN 5mg/325mg TAB PO PRN ×5 (01:35→21:37)
[2022-05-29 06:13] LABS: Hemoglobin 8.4 g/dl (12.0-16.0)
--- NOTE | 2022-05-29 06:42 | Obstetrical Progress Note ---
Date of Service May 29, 2022 Assessment & Plan (1) care following delivery: (2) Need for MMR vaccine: (3) Need for rhogam due to Rh negative mother: Plan - Overall, feeling well and eating well today - Infant feeding going well without concern - Urinating and passing gas appropriately - Ambulating well in room - Pain controlled w/ Ibuprofen and Percocet - Hgb 8.4 05/29, from 8.0 05/28 - Vitals stable and wnl - Rh negative mom, AB positive baby - Rubella non-immune, needs MMR - Anticipate removal of surgical bandage today, patient requests to remove in shower - Routine PP care progressing well - Anticipate discharge @ 48-72 hours PP - Recommending f/u outpatient in 6 weeks Admission and Anticipated Discharge Date Admission Date: May 26, 2022 Supervising Physician Co-Signing Physician Notes Resident Physician Supervision Note: I was present with Dr. León during the history and exam. I discussed the case with the resident and agree with the findings and plan as documented in the note. Any exceptions or clarifications are listed here: POD#2 doing well. Continue routine /postop care. Anticipate DC home tomorrow. Documented By: Marge Gomez, DO Subjective Patient is a 31F who is POD #2 following delivery at 40 3/7. She reports feeling well overall this morning. - Ambulation - well throughout room (no lightheadedness or dizziness) - Voiding/Leach - independent voids, no dysuria or pressure - Gas/Stool - passing gas, no bowel movement - Diet - regular, no nausea or emesis - Lochia - diminishing, light amount - Infant Feeding Type - breast feeding - Pain Level - 3/10, controlled with Ibuprofen/Percocet Review of Systems - Denies fever, chills, sweats - Denies shortness of breath, difficulty breathing, chest pain, palpitations, chest pressure. - Denies breast pain. - Denies dysuria. - Denies headache or changes in vision. Physical Exam Physical Exam: General: Alert, oriented. No acute distress. Cardiac: RRR, normal S1/S2, no murmurs/rubs/gallops. Respiratory: Non-labored, CTAB, no wheezes/rales/rhonchi. Symmetric chest rise. Abdomen: Soft, nontender, nondistended. Bowel sounds present. Uterus: Uterine fundus firm, palpable 2 cm below umbilicus. Surgical bandage intact, no erythema or edema. Lower Extremities: No lower extremity edema or swelling. No deep calf pain. Les's negative bilaterally. Results & Data ([facility]) Vital Signs (Past 12 Hours) Vital Signs Temp Pulse Resp BP Pulse Ox O2 Del Method 05/28/22 23:45 36.5 C 78 18 105/69 92 Room Air 05/28/22 20:44 37.1 C 83 16 122/71 98 Room Air Resident Activity Tracking Resident Involvement: Resident Care Provided Care Provided: OB Delivery
[2022-05-29] MEDS: DOCUSATE SODIUM 100 MG CAP PO SCH ×2 (08:13→21:36)
[2022-05-29] MEDS: SIMETHICONE 80 MG CHEW PO SCH ×4 (08:13→21:36)
[2022-05-29] MEDS: PRENATAL VITAMIN 1 TAB PO SCH (08:13)
[2022-05-29] MEDS: FERROUS SULFATE 325 MG TAB PO SCH (08:13)
[2022-05-29] MEDS: SERTRALINE HCL 50 MG TABLET PO SCH (08:15)
[2022-05-29] MEDS ORDERED: bisacodyL 10 MG SUPP PR PRN (21:41)
[2022-05-30] MEDS: IBUPROFEN 600 MG TAB PO PRN ×2 (02:13→06:50)
[2022-05-30] MEDS: oxyCODONE/ACETAMINOPHEN 5mg/325mg TAB PO PRN ×2 (02:13→06:50)
--- NOTE | 2022-05-30 05:07 | Obstetrical Progress Note ---
Date of Service May 30, 2022 Assessment & Plan (1) care following delivery: (2) Need for MMR vaccine: (3) Need for rhogam due to Rh negative mother: Plan - Overall, feeling well and eating well today - Infant feeding going well without concern - Urinating and passing gas appropriately - Ambulating well in room - Pain controlled w/ Ibuprofen and Percocet - Hgb 8.4 05/29, from 8.0 05/28 - Vitals stable and wnl - Rh negative mom, AB positive baby, s/p Rhogam - Rubella non-immune, needs MMR - Incision clean and dry w/o erythema or purulence - Routine PP care progressing well - Anticipate discharge @ 48-72 hours PP - Recommending f/u outpatient in 6 weeks Admission and Anticipated Discharge Date Admission Date: May 26, 2022 Supervising Physician Co-Signing Physician Notes Resident Physician Supervision Note: I interviewed and examined the patient. Discussed with Dr. León and agree with findings and plan as documented in the note. Any exceptions or clarifications are listed here: POD3 s/p pLTCS, doing well. VSS, exam benign and wnl. Incision c/d/i. Stable for d/c home Documented By: Charmaine Rosario MD Subjective Patient is a 31F who is POD #2 following delivery at 40 3/7. She reports feeling well overall this morning. - Ambulation - well throughout room (no lightheadedness or dizziness) - Voiding/Leach - independent voids, no dysuria or pressure - Gas/Stool - passing gas, no bowel movement - Diet - regular, no nausea or emesis - Lochia - diminishing, light amount - Infant Feeding Type - breast feeding - Pain Level - 2/10, controlled with Ibuprofen/Percocet Review of Systems - Denies fever, chills, sweats - Denies shortness of breath, difficulty breathing, chest pain, palpitations, chest pressure. - Denies breast pain. - Denies dysuria. - Denies headache or changes in vision. Physical Exam Physical Exam: General: Alert, oriented. No acute distress. Cardiac: RRR, normal S1/S2, no murmurs/rubs/gallops. Respiratory: Non-labored, CTAB, no wheezes/rales/rhonchi. Symmetric chest rise. Abdomen: Soft, nontender, nondistended. Bowel sounds present. Uterus: Uterine fundus firm, palpable 2 cm below umbilicus. Steri strips intact, no erythema or edema. Lower Extremities: No lower extremity edema or swelling. No deep calf pain. Les's negative bilaterally. Results & Data ([facility]) Vital Signs (Past 12 Hours) Vital Signs Temp Pulse Resp BP Pulse Ox O2 Del Method 05/29/22 23:51 36.6 C 73 20 128/83 99 Room Air 05/29/22 19:03 36.7 C 73 20 121/79 96 Room Air 05/29/22 19:03 Room Air Resident Activity Tracking Resident Involvement: Resident Care Provided Care Provided: OB Delivery
[2022-05-30] MEDS: DOCUSATE SODIUM 100 MG CAP PO SCH (08:19)
[2022-05-30] MEDS: FERROUS SULFATE 325 MG TAB PO SCH (08:19)
[2022-05-30] MEDS: SIMETHICONE 80 MG CHEW PO SCH (08:20)
[2022-05-30] MEDS: SERTRALINE HCL 50 MG TABLET PO SCH (08:20)
[2022-05-30] MEDS: PRENATAL VITAMIN 1 TAB PO SCH (08:20)
== END 2022-05-30 13:09 | disposition home or self-care (01) | DRG 787 ==
LOC: OPB 23:22 → 4S1 23:23 → 4E2 05-28 01:26